=== PATIENT | male | born 1965 | race Caucasian/White ===

== ENCOUNTER 2018-01-06 12:09 | Inpatient (IN) | payer MEDICAID ==
[~2018-01-06] VITALS: Ht 170.2 cm; Wt 114.9 kg
[2018-01-06] VITALS (9 sets, daily range): BP systolic 111–157; BP diastolic 63–99; PULSE 84–111; RESP 16–20; TEMP 97.8–98.3; O2SAT 95–100
[~2018-01-06 12:09] MED LIST: ALBU6.7H INH; BLOOD GLUCOSE T1 TES; EPIP0.3I IM; GLIP-158 PO; GLUCKIT15; GLYCOPYRROLATE 1 MG/5 ML SYRINGE IV PUSH ONE; LIDOCAINE HCL 1% PF 5 ML SYRINGE OTHER ONE; LIPI40TA PO; LISI-519 PO; METF500T PO; NEOSTIGMINE 5 MG/5 ML SYRINGE IV PUSH ONE; ONDANSETRON HCL 4 MG/2 ML VIAL IV ONE; PHENYLEPH/NS 1000 MCG/10 ML SYR IV ONE; PROPOFOL 200 MG/20 ML AMP IV ONE; ROCURONIUM INJ 50 MG/5 ML SYRINGE IV PUSH ONE; SPIRCAP INH; SUCCINYLCHOLINE CHLORIDE 100 MG/5 ML SYRINGE IV PUSH ONE; TAMS0.4C4 PO; WELLTAB39 PO; ZANT150T2 PO
[2018-01-06] MEDS ORDERED: SODIUM CHLOR 0.9% 1000 ML INJ 1,000 ML IV SCH (13:55)
--- NOTE | 2018-01-06 13:55 | PD ---
HPI Chief Complaint: Abdominal Pain Time Seen by Provider: 13:49 Travel History International Travel<30 days: No Contact w/Intl Traveler<30days: No Traveled to known affect area: No History of Present Illness HPI 52-year-old male presents the emergency department with vague complaints of abdominal pain, nausea, and constipation intermittent with diarrhea. Patient has history of stomach issues in the past currently treated with ranitidine 150 mg twice daily. Patient also has a history of prostate trouble, on tamsulosin. Patient states his pain was worse last evening and centered on the lower aspect of the umbilicus region. Patient states history of ventral hernia previously reduced in the past. Patient has had no surgeries on his abdomen. Patient denies vomiting despite the nausea. No recent fever, chills, or flank pain. Patient does state his urine has been "hot off and on". Patient is allergic to ascorbic acid, aspirin, B venom PFSH Past Medical History Cardiac Catheterization: No Cardiovascular Problems: Yes (HTN) High Cholesterol: Yes Chest Pain: Yes COPD: Yes Coronary Artery Disease: Yes Diabetes: Yes Patient Takes Glucophage: Yes Diminished Hearing: No Hypertension: Yes Tetanus Vaccination: < 5 Years Past Surgical History Eye Surgery: Yes Social History Alcohol Use: No Tobacco Use: No Substance Use: No Allergies-Medications (Allergen,Severity, Reaction): Coded Allergies: bee venom protein (honey bee) (Verified Allergy, Severe, 01/06/18) anaphylaxis ascorbic acid (Verified Allergy, Intermediate, rash, 01/06/18) aspirin (Verified Allergy, Mild, 01/06/18) Reported Meds & Prescriptions Reported Meds & Active Scripts Active Zantac (Ranitidine HCl) 150 Mg Tab 150 Mg PO DAILY Wellbutrin Xl 24 HR (Bupropion HCl) 300 Mg Tab 300 Mg PO DAILY Spiriva Handihaler (Tiotropium Inh) 18 Mcg Cap 18 Mcg INH DAILY 1 capsule = 18 mcg Lipitor (Atorvastatin Calcium) 40 Mg Tab 40 Mg PO HS Glipizide XL (Glipizide) 2.5 Mg Lucina 2.5 Mg PO DAILY Take with breakfast or first main meal of the day Tamsulosin (Tamsulosin HCl) 0.4 Mg Cap 0.4 Mg PO HS Lisinopril 5 Mg Tab 5 Mg PO DAILY Metformin (Metformin HCl) 500 Mg Tab 1,000 Mg PO BIDPC With meals Proventil Hfa 6.7 GM Inh (Albuterol Sulfate) 90 Mcg/Act Aer 2 Puff INH Q4-6H PRN Blood Glucose Test Strips 1 Haydee Haydee 1 Ea .ROUTE DIRECTED Glucocom Blood Glucose Mo W/Device (Device) 1 Kit Kit 1 Kit .ROUTE DAILY Epipen 2-Florentin Inj (Epinephrine) 0.3 Mg/0.3 Ml Pfpen 0.3 Mg IM ONCE PRN Review of Systems Except as stated in HPI: all other systems reviewed are Neg General / Constitutional: No: Fever, Chills Eyes: No: Visual changes HENT: No: Headaches Cardiovascular: No: Chest Pain or Discomfort Respiratory: No: Shortness of Breath Gastrointestinal: Positive: Nausea, Diarrhea (Intermittent with constipation.) , Abdominal Pain (See history of present illness), Constipation, Changes in Bowel Habits, Loss of Appetite, No: Vomiting, Hematemesis, Hematochezia, Indigestion, Dysphagia Genitourinary: Positive: Frequency, Dysuria (See history of present illness per ), No: Urgency, Flank Pain, Discharge Musculoskeletal: No: Pain Skin: No Rash Neurologic: No: Weakness Psychiatric: No: Depression Endocrine: No: Polydipsia Hematologic/Lymphatic: No: Easy Bruising Physical Exam Narrative GENERAL: Patient appears comfortable and relaxed in no obvious distress. He is mildly anxious. SKIN: Warm and dry. Normal color. Normal turgor. No rash. HEAD: Atraumatic. Normocephalic. EYES: Pupils equal and round. No scleral icterus. No injection or drainage. ENT: No nasal bleeding or discharge. Mucous membranes pink and moist. Pharynx is clear. Airways patent. NECK: Trachea midline. No JVD. CARDIOVASCULAR: Regular rate and rhythm. RESPIRATORY: No accessory muscle use. Clear to auscultation. Breath sounds equal bilaterally. GASTROINTESTINAL: Abdomen soft, patient has nonspecific mild to moderate tenderness just below the umbilicus, nondistended. No CVA tenderness. No appreciable hernias are noted on exam. Hepatic and splenic margins not palpable. MUSCULOSKELETAL: Extremities without clubbing, cyanosis, or edema. No obvious deformities. NEUROLOGICAL: Awake and alert. No obvious cranial nerve deficits. Motor grossly within normal limits. Five out of 5 muscle strength in the arms and legs. Normal speech. PSYCHIATRIC: Appropriate mood and affect; insight and judgment normal. Data Data Last Documented VS Vital Signs Date Time Temp Pulse Resp B/P (MAP) Pulse Ox O2 Delivery O2 Flow Rate FiO2 01/06/18 15:26 97 20 111/90 (97) 99 Room Air 01/06/18 12:11 98.3 Orders Orders Complete Blood Count With Diff (01/06/18 13:55) Comprehensive Metabolic Panel (01/06/18 13:55) Lipase (01/06/18 13:55) Prothrombin Time / Inr (Pt) (01/06/18 13:55) Act Partial Throm Time (Ptt) (01/06/18 13:55) Urinalysis - C+S If Indicated (01/06/18 13:55) Ct Abd/Pel W Iv Contrast(Rout) (01/06/18 13:55) Iv Access Insert/Monitor (01/06/18 13:55) Ecg Monitoring (01/06/18 13:55) Oximetry (01/06/18 13:55) NPO (01/06/18 13:55) Morphine Inj (Morphine Inj) (01/06/18 14:00) Ondansetron Inj (Zofran Inj) (01/06/18 14:00) Sodium Chlor 0.9% 1000 Ml Inj (Ns 1000 M (01/06/18 13:55) Sodium Chloride 0.9% Flush (Ns Flush) (01/06/18 14:00) Famotidine Inj (Pepcid Inj) (01/06/18 14:00) Dicyclomine Inj (Bentyl Inj) (01/06/18 14:00) Lactic Acid Sepsis Protocol (01/06/18 15:12) Blood Culture (01/06/18 15:12) Iohexol 350 Inj (Omnipaque 350 Inj) (01/06/18 16:47) Piperacil-Tazo 4.5 Gm Premix (Zosyn 4.5 (01/06/18 17:09) Labs Laboratory Tests Test 01/06/18 14:15 01/06/18 15:25 01/06/18 15:45 White Blood Count 10.4 TH/MM3 Red Blood Count 5.47 MIL/MM3 Hemoglobin 16.5 GM/DL Hematocrit 47.7 % Mean Corpuscular Volume 87.2 FL Mean Corpuscular Hemoglobin 30.3 PG Mean Corpuscular Hemoglobin Concent 34.7 % Red Cell Distribution Width 14.8 % Platelet Count 244 TH/MM3 Mean Platelet Volume 9.2 FL Neutrophils (%) (Auto) 57.7 % Lymphocytes (%) (Auto) 33.7 % Monocytes (%) (Auto) 5.6 % Eosinophils (%) (Auto) 1.8 % Basophils (%) (Auto) 1.2 % Neutrophils # (Auto) 6.0 TH/MM3 Lymphocytes # (Auto) 3.5 TH/MM3 Monocytes # (Auto) 0.6 TH/MM3 Eosinophils # (Auto) 0.2 TH/MM3 Basophils # (Auto) 0.1 TH/MM3 CBC Comment DIFF FINAL Differential Comment Prothrombin Time 10.4 SEC Prothromb Time International Ratio 1.0 RATIO Activated Partial Thromboplast Time 25.5 SEC Blood Urea Nitrogen 11 MG/DL Creatinine 1.01 MG/DL Random Glucose 390 MG/DL Total Protein 8.3 GM/DL Albumin 4.2 GM/DL Calcium Level 9.8 MG/DL Alkaline Phosphatase 110 U/L Aspartate Amino Transf (AST/SGOT) 38 U/L Alanine Aminotransferase (ALT/SGPT) 62 U/L Total Bilirubin 0.7 MG/DL Sodium Level 133 MEQ/L Potassium Level 4.2 MEQ/L Chloride Level 98 MEQ/L Carbon Dioxide Level 26.5 MEQ/L Anion Gap 9 MEQ/L Estimat Glomerular Filtration Rate 78 ML/MIN Lipase 143 U/L Lactic Acid Level 2.7 mmol/L Urine Color LIGHT-YELLOW Urine Turbidity CLEAR Urine pH 5.5 Urine Specific [place] 1.031 Urine Protein TRACE mg/dL Urine Glucose (UA) 1000 mg/dL Urine Ketones NEG mg/dL Urine Occult Blood NEG Urine Nitrite NEG Urine Bilirubin NEG Urine Urobilinogen LESS THAN 2.0 MG/DL Urine Leukocyte Esterase NEG Urine WBC 1 /hpf Microscopic Urinalysis Comment CULT NOT INDICATED MDM Medical Decision Making Medical Screen Exam Complete: Yes Emergency Medical Condition: Yes Medical Record Reviewed: Yes Differential Diagnosis Urinary tract infection. Urinary retention. Gastritis. Diverticulitis. Gastroenteritis. Constipation. Abdominal hernia. Narrative Course Patient appears medically stable at time of exam. Labs ordered including CBC, CMP, lipase, urinalysis. IV access is obtained the patient is given 4 mg Zofran IV, 2 mg morphine IV, and 20 mg Pepcid IV. Patient is given 20 mg Bentyl IM. Patient is given 1000 mL's normal saline bolus. CT of the abdomen and pelvis is ordered with IV contrast. CBC is unremarkable. Coagulation studies are unremarkable. Chemistries remarkable for sodium 133, GFR 78, random glucose is 390, lactic acid 2.7, AST is 38, and total protein is 8.3. CT scan showed: The distal appendix is distended to 11 mm and there is very minimal periappendiceal fat stranding. Findings are most characteristic of a very early or very mild appendicitis. No abscess obstruction free fluid or free air. Patient started on Zosyn 4.5 g IV. Patient was given 5 units insulin IV as well. Patient discussed with Dr. Richardson who recommends call to the surgeon. Call was placed to Dr. Vincent and patient was discussed. Dr. Vincent request the patient to remain n.p.o. will be admitted to the hospitalist service with consult to him Calls placed to the hospitalist for admission. Sepsis Criteria Severe Sepsis (+one): Lactate >2 Diagnosis Primary Impression: Acute appendicitis with peritonitis Admitting Information Admitting Physician Requests: Observation Condition: Stable Ketan Lopez Jan 06, 2018 13:55
[2018-01-06] MEDS ORDERED: DICYCLOMINE HCL 20 MG/2 ML VIAL IM ONE (14:00)
[2018-01-06] MEDS ORDERED: FAMOTIDINE 20 MG/2 ML VIAL IV PUSH ONE (14:00)
[2018-01-06] MEDS ORDERED: ONDANSETRON HCL 4 MG/2 ML VIAL IVP ONE (14:00)
[2018-01-06] MEDS ORDERED: MORPHINE SULFATE 4 MG/ML INJ IV PUSH ONE (14:00)
[2018-01-06] MEDS ORDERED: SODIUM CHLORIDE 0.9% FLUSH 10 ML FLUSH IV FLUSH PRN (14:00)
[2018-01-06 14:24] LABS: BASOPHIL # 0.1 TH/MM3 (0-0.2); BASOPHIL % 1.2 % (0.0-2.0); EOSINOPHIL # 0.2 TH/MM3 (0-0.4); EOSINOPHIL % 1.8 % (0.0-4.0); HEMATOCRIT 47.7 % (39.0-51.0); HEMOGLOBIN 16.5 GM/DL (13.0-17.0); LYMPH % 33.7 % (9.0-44.0); LYMPHOCYTE # 3.5 TH/MM3 (1.0-4.8); MEAN CELL VOLUME 87.2 FL (80.0-100.0); MEAN CORPUSCULAR HEMOGLOBIN 30.3 PG (27.0-34.0); MEAN CORPUSCULAR HGB CONC 34.7 % (32.0-36.0); MEAN PLATELET VOLUME 9.2 FL (7.0-11.0); MONO % 5.6 % (0.0-8.0); MONOCYTE # 0.6 TH/MM3 (0-0.9); NEUT % 57.7 % (16.0-70.0); PLATELET COUNT 244 TH/MM3 (150-450); RED BLOOD COUNT 5.47 MIL/MM3 (4.50-5.90); RED CELL DISTRIBUTION WIDTH 14.8 % (11.6-17.2); WHITE BLOOD COUNT 10.4 TH/MM3 (4.0-11.0)
[2018-01-06 14:37] LABS: PROTHROMBIN TIME - PATIENT 10.4 SEC (9.8-11.6)
[2018-01-06 14:41] LABS: ALKALINE PHOSPHATASE 110 U/L (45-117); TOTAL BILIRUBIN ADULT 0.7 MG/DL (0.2-1.0); TOTAL PROTEIN 8.3 GM/DL (6.4-8.2)
[2018-01-06 15:28] LABS: ALBUMIN 4.2 GM/DL (3.4-5.0); ALT (GPT) 62 U/L (12-78); AST (GOT) 38 U/L (15-37); BICARBONATE 26.5 MEQ/L (21.0-32.0); BLOOD UREA NITROGEN 11 MG/DL (7-18); CALCIUM 9.8 MG/DL (8.5-10.1); CHLORIDE 98 MEQ/L (98-107); CREATININE 1.01 MG/DL (0.60-1.30); GLOMERULAR FILTRATION RATE 78 ML/MIN (>89); GLUCOSE,RANDOM 390 MG/DL (74-106); SODIUM (NA) 133 MEQ/L (136-145)
[2018-01-06 16:06] LABS: LACTIC ACID SEPSIS PROTOCOL 2.7 mmol/L (0.4-2.0)
[2018-01-06 16:13] LABS: BILIRUBIN, URINE NEG (NEG); BLOOD, URINE NEG (NEG); GLUCOSE,URINE 1000 mg/dL (NEG); KETONE, URINE NEG (NEG); NITRITE,URINE NEG (NEG); PH, URINE 5.5 (5.0-8.5); URINE COLOR LIGHT-YELLOW (YELLW/STRAW); URINE LEUKOCYTE ESTERASE NEG (NEG)
[2018-01-06] MEDS ORDERED: METFORMIN HOLD POST IV CONTRAST SCH (16:40)
[2018-01-06] MEDS ORDERED: IOHEXOL 350 MG/ML 10 ML VIAL (for RAD DIAG) IVCONTRAST ONE (16:47)
--- NOTE | 2018-01-06 17:07 | RADRPT ---
EXAM DATE/TIME: 01/06/2018 16:38 [place] COMPARISON: No previous studies available for comparison. INDICATIONS : [place] pain, nausea. IV CONTRAST: 96 cc Omnipaque 350 (iohexol) IV ORAL CONTRAST: No oral contrast ingested. RADIATION DOSE: 15.70 CTDIvol (mGy) MEDICAL HISTORY : Cardiovascular disease. Hypertension. Gastroesophageal reflux disease.Diabetes SURGICAL HISTORY : None. ENCOUNTER: Initial ACUITY: 3 days PAIN SCALE: 4/10 LOCATION: [facility] TECHNIQUE: Volumetric scanning of the abdomen and pelvis was performed. Using automated exposure control and ad justment of the mA and/or kV according to patient size, radiation dose was kept as low as reasonably achievable to obtain optimal diagnostic quality images. DICOM format image data is available electro nically for review and comparison. FINDINGS: Lung bases are clear. Fatty liver. Spleen, adrenals, kidneys and pancreas unremarkable. The proximal appendix is normal caliber. However, the distal appendix is distended to about 11 mm and there is very minimal periappendiceal inflammatory changes. Findings are most characteristic of a ve ry early distal appendicitis. There is no abscess, obstruction, free fluid or free air. No pelvic masses. No acute bony abnormalities. CONCLUSION: The distal appendix is distended to 11 mm and there is very minimal periappendiceal fat stranding. Fi ndings are most characteristic of a very early or very mild appendicitis. No abscess obstruction free fluid or free air. Rancho Hairston MD on January 06, 2018 at 17:00 Board Certified Radiologist. This report was verified electronically.
[2018-01-06] MEDS ORDERED: PIPERACIL-TAZO 4.5 GM PREMIX 100 ML IV STA (17:09)
--- NOTE | 2018-01-06 18:05 | HHI.HP ---
HPI Service [facility] Primary Care Physician CODY Diaz Admission Diagnosis Acute Appendicitis Diagnoses: Travel History International Travel<30 Days: No Contact w/Intl Traveler <30 Da: No Traveled to Known Affected Are: No History of Present Illness 52 YOWM presented to the ER for lower abdominal pain. He states the pain has been intermittent for the past 2-3 months but yesterday evening it intensified. He states he had dinner and was watching TV when he had acute onset lower abdominal pain. He endorses associated nausea and belching but denies vomiting, diarrhea, fever, or chills. He states the pain was sharp and pulsating and he rates it as a "20." Pain radiated to the epigastric region and back. He didn't take anything for the pain and was able to get to sleep but only on his side. When he woke this morning the pain was significantly better but still present so he decided to come in for evaluation. His pain so far today has been coming in waves. Review of Systems Except as stated in HPI: all other systems reviewed are Neg Past Family Social History Past Medical History DM HTN HLD COPD Chronic pain Tobacco abuse GERD Past Surgical History Partial right index finger amputation Eye surgery as a child Reported Medications Zantac (Ranitidine HCl) 150 Mg Tab 150 Mg PO DAILY Wellbutrin Xl 24 HR (Bupropion HCl) 300 Mg Tab 300 Mg PO DAILY Spiriva Handihaler (Tiotropium Inh) 18 Mcg Cap 18 Mcg INH DAILY Lipitor (Atorvastatin Calcium) 40 Mg Tab 40 Mg PO HS Glipizide XL (Glipizide) 2.5 Mg Lucina 2.5 Mg PO DAILY Tamsulosin (Tamsulosin HCl) 0.4 Mg Cap 0.4 Mg PO HS Lisinopril 5 Mg Tab 5 Mg PO DAILY Metformin (Metformin HCl) 500 Mg Tab 1,000 Mg PO BIDPC Proventil Hfa 6.7 GM Inh (Albuterol Sulfate) 90 Mcg/Act Aer 2 Puff INH Q4-6H PRN Blood Glucose Test Strips 1 Haydee Haydee 1 Ea .ROUTE DIRECTED Glucocom Blood Glucose Mo W/Device (Device) 1 Kit Kit 1 Kit .ROUTE DAILY Epipen 2-Florentin Inj (Epinephrine) 0.3 Mg/0.3 Ml Pfpen 0.3 Mg IM ONCE PRN Allergies: Coded Allergies: bee venom protein (honey bee) (Verified Allergy, Severe, 01/06/18) anaphylaxis ascorbic acid (Verified Allergy, Intermediate, rash, 01/06/18) aspirin (Verified Allergy, Mild, 01/06/18) Active Ordered Medications Acetaminophen (Tylenol) 650 mg Q4H PRN PO; Start 01/06/18 at 18:30; Status UNV Albuterol/ Ipratropium (Duoneb Neb) 1 ampule Q6HR NEB PRN NEB; Start 01/06/18 at 18:45; Status UNV Atorvastatin Calcium (Lipitor) 40 mg HS PO; Start 01/06/18 at 21:00; Status UNV Bupropion HCl (Wellbutrin Xl 24 Hr) 300 mg DAILY PO; Start 01/07/18 at 09:00; Status UNV Dextrose (D50w (Vial) Inj) 50 ml UNSCH PRN IV PUSH; Start 01/06/18 at 18:30; Status UNV Dicyclomine HCl (Bentyl Inj) 20 mg ONCE ONCE IM Last administered on 01/06/18at 14:18; Admin Dose 20 MG; Start 01/06/18 at 14:00; Stop 01/06/18 at 14:01; Status DC Famotidine (Pepcid Inj) 20 mg ONCE ONCE IV PUSH Last administered on 01/06/18at 14:00; Admin Dose 20 MG; Start 01/06/18 at 14:00; Stop 01/06/18 at 14:01; Status DC Glucagon (Glucagon Inj) 1 mg UNSCH PRN OTHER; Start 01/06/18 at 18:30; Status UNV Insulin Aspart (NovoLOG SUPPLEMENTAL SCALE) 1 ACHS SLIDING SCALE SQ; Start 09/15 at 21:00; Status UNV Iohexol (Omnipaque 350 Inj) 96 ml STK-MED ONCE IVCONTRAST Last administered on at 16:47; Admin Dose 96 ML; Start 01/06/18 at 16:47; Stop 01/06/18 at 16: 48; Status DC Lisinopril (Prinivil) 5 mg DAILY PO; Start 01/07/18 at 09:00; Status UNV Morphine Sulfate (Morphine Inj) 2 mg ONCE ONCE IV PUSH Last administered on 09/15at 14:19; Admin Dose 2 MG; Start 01/06/18 at 14:00; Stop 01/06/18 at 14:01 ; Status DC Morphine Sulfate (Morphine Inj) 2 mg Q6H PRN IV PUSH; Start 01/06/18 at 18:30; Status UNV Non-Formulary Medication 150 mg DAILY PO; Start 01/07/18 at 09:00; Status UNV Ondansetron HCl (Zofran Inj) 4 mg ONCE ONCE IVP Last administered on 01/06/18at 14:20; Admin Dose 4 MG; Start 01/06/18 at 14:00; Stop 01/06/18 at 14:01; Status DC Ondansetron HCl (Zofran Inj) 4 mg Q6H PRN IVP; Start 01/06/18 at 18:30; Status UNV Piperacillin Sod/ Tazobactam Sod 100 ml @ 200 mls/hr ONCE STAT IV Last administered on 01/06/18at 17:17; Admin Dose 200 MLS/HR; Start 01/06/18 at 17:09 ; Stop 01/06/18 at 17:38; Status DC Piperacillin Sod/ Tazobactam Sod 100 ml @ 200 mls/hr Q6H IV; Start 01/06/18 at 23:20; Status UNV Sodium Chloride 1,000 ml @ 125 mls/hr Q8H IV; Start 01/06/18 at 18:27; Status UNV Sodium Chloride 1,000 ml @ 1,000 mls/hr Q1H IV Last administered on 01/06/18at 14:18; Admin Dose 1,000 MLS/HR; Start 01/06/18 at 13:55; Stop 01/06/18 at 14:54 ; Status DC Sodium Chloride (NS Flush) 2 ml BID IV FLUSH; Start 01/06/18 at 21:00; Status UNV Sodium Chloride (NS Flush) 2 ml UNSCH PRN IV FLUSH; Start 01/06/18 at 14:00 Sodium Chloride (NS Flush) 2 ml UNSCH PRN IV FLUSH; Start 01/06/18 at 18:30; Status UNV Tamsulosin HCl (Flomax) 0.4 mg HS PO; Start 01/06/18 at 21:00; Status UNV Tiotropium [place] (Spiriva Inh) 18 mcg DAILY INH; Start 01/07/18 at 09:00; Status UNV Family History Mother: , breast cancer Father: , CAD, stroke, DM Sister from breast cancer Sister from lung cancer Social History Lives alone EtOH: denies Tobacco: quit March 2016, prior smoked since he was 7 years old up to 2PPD Illicit drugs: never IVDU but history or marijuana and "other drugs" including meth and crack Physical Exam Vital Signs Vital Signs Date Time Temp Pulse Resp B/P (MAP) Pulse Ox O2 Delivery O2 Flow Rate FiO2 01/06/18 17:18 99 18 140/73 (95) 97 Room Air 01/06/18 15:26 97 20 111/90 (97) 99 Room Air 01/06/18 15:26 20 01/06/18 14:24 97 01/06/18 13:44 111 20 157/99 (118) 96 01/06/18 12:11 98.3 87 16 156/84 (108) 100 Physical Exam GENERAL: Well-nourished, well-developed male sitting up comfortably in bed in no apparent distress. SKIN: No rashes, ecchymoses or lesions. Cool and dry. Few tattoos. HEENT: Atraumatic. Normocephalic. No temporal or scalp tenderness. Pupils equal round and reactive. Extraocular motions intact. No scleral icterus. No injection or drainage. Nose without bleeding, purulent drainage or septal hematoma. Throat without erythema, tonsillar hypertrophy or exudate. Uvula midline. Airway patent. NECK: Trachea midline. No JVD or lymphadenopathy. Supple, nontender, no meningeal signs. CARDIOVASCULAR: Regular rate and rhythm without murmurs, gallops, or rubs. RESPIRATORY: Clear to auscultation. Breath sounds equal bilaterally. No wheezes , rales, or rhonchi. GASTROINTESTINAL: Bowel sounds present. Abdomen soft, mild periumbilical and RLQ TTP. No guarding or rebound. MUSCULOSKELETAL: Extremities without clubbing, cyanosis, or edema. No joint tenderness, effusion, or edema noted. No calf tenderness. Negative Homans sign bilaterally. NEUROLOGICAL: Awake and alert. Motor and sensory grossly within normal limits. Normal speech. Laboratory Laboratory Tests Test 01/06/18 14:15 01/06/18 15:25 01/06/18 15:45 White Blood Count 10.4 Red Blood Count 5.47 Hemoglobin 16.5 Hematocrit 47.7 Mean Corpuscular Volume 87.2 Mean Corpuscular Hemoglobin 30.3 Mean Corpuscular Hemoglobin Concent 34.7 Red Cell Distribution Width 14.8 Platelet Count 244 Mean Platelet Volume 9.2 Neutrophils (%) (Auto) 57.7 Lymphocytes (%) (Auto) 33.7 Monocytes (%) (Auto) 5.6 Eosinophils (%) (Auto) 1.8 Basophils (%) (Auto) 1.2 Neutrophils # (Auto) 6.0 Lymphocytes # (Auto) 3.5 Monocytes # (Auto) 0.6 Eosinophils # (Auto) 0.2 Basophils # (Auto) 0.1 CBC Comment DIFF FINAL Differential Comment Prothrombin Time 10.4 Prothromb Time International Ratio 1.0 Activated Partial Thromboplast Time 25.5 Blood Urea Nitrogen 11 Creatinine 1.01 Random Glucose 390 Total Protein 8.3 Albumin 4.2 Calcium Level 9.8 Alkaline Phosphatase 110 Aspartate Amino Transf (AST/SGOT) 38 Alanine Aminotransferase (ALT/SGPT) 62 Total Bilirubin 0.7 Sodium Level 133 Potassium Level 4.2 Chloride Level 98 Carbon Dioxide Level 26.5 Anion Gap 9 Estimat Glomerular Filtration Rate 78 Lipase 143 Lactic Acid Level 2.7 Urine Color LIGHT-YELLOW Urine Turbidity CLEAR Urine pH 5.5 Urine Specific [place] 1.031 Urine Protein TRACE Urine Glucose (UA) 1000 Urine Ketones NEG Urine Occult Blood NEG Urine Nitrite NEG Urine Bilirubin NEG Urine Urobilinogen LESS THAN 2.0 Urine Leukocyte Esterase NEG Urine WBC 1 Microscopic Urinalysis Comment CULT NOT INDICATED Date/Time Source Procedure Growth Status 01/06/18 15:25 Blood Peripheral Aerobic Blood Culture Pending Received 01/06/18 15:25 Blood Peripheral Anaerobic Blood Culture Pending Received Result Diagram: 01/06/18 1415 01/06/18 1415 Imaging Abdomen/Pelvis CT 01/06/18 1355 Signed Impressions: Service Date/Time: Saturday, January 06, 2018 16:38 - CONCLUSION: The distal appendix is distended to 11 mm and there is very minimal periappendiceal fat stranding. Findings are most characteristic of a very early or very mild appendicitis. No abscess obstruction free fluid or free air. Rancho Hairston MD [place] VTE Risk Assessment Caprini VTE Risk Assessment: Mod/High Risk (score >= 2) Caprini Risk Assessment Model Point Value = 1 Point Value = 2 Point Value = 3 Point Value = 5 Age 41-60 Minor surgery BMI > 25 kg/m2 Swollen legs Varicose veins or History of unexplained or recurrent spontaneous Oral contraceptives or hormone replacement Sepsis (< 1 month) Serious lung disease, including pneumonia (< 1 month) Abnormal pulmonary function Acute myocardial infarction Congestive heart failure (< 1 month) History of inflammatory bowel disease Medical patient at bed rest Age 61-74 Arthroscopic surgery Major open surgery (> 45 min) Laparoscopic surgery (> 45 min) Malignancy Confined to bed (> 72 hours) Immobilizing plaster cast Central venous access Age >= 75 History of VTE Family history of VTE Factor V Leiden Prothrombin [id number] Lupus anticoagulant Anticardiolipin antibodies Elevated serum homocysteine Heparin-induced thrombocytopenia Other congenital or acquired thrombophilia Stroke (< 1 month) Elective arthroplasty Hip, pelvis, or leg fracture Acute spinal cord injury (< 1 month) Prophylaxis Regimen Total Risk Factor Score Risk Level Prophylaxis Regimen 0-1 Low Early ambulation 2 Moderate Order ONE of the following: *Sequential Compression Device (SCD) *Heparin 5000 units SQ BID 3-4 Higher Order ONE of the following medications: *Heparin 5000 units SQ TID *Enoxaparin/Lovenox 40 mg SQ daily (WT < 150 kg, CrCl > 30 mL/min) *Enoxaparin/Lovenox 30 mg SQ daily (WT < 150 kg, CrCl > 10-29 mL/min) *Enoxaparin/Lovenox 30 mg SQ BID (WT < 150 kg, CrCl > 30 mL/min) AND/OR *Sequential Compression Device (SCD) 5 or more Highest Order ONE of the following medications: *Heparin 5000 units SQ TID (Preferred with Epidurals) *Enoxaparin/Lovenox 40 mg SQ daily (WT < 150 kg, CrCl > 30 mL/min) *Enoxaparin/Lovenox 30 mg SQ daily (WT < 150 kg, CrCl > 10-29 mL/min) *Enoxaparin/Lovenox 30 mg SQ BID (WT < 150 kg, CrCl > 30 mL/min) AND *Sequential Compression Device (SCD) Assessment and Plan Problem List: (1) Appendicitis, acute ICD Code: K35.80 - Unspecified acute appendicitis Status: Acute (2) Diabetes mellitus ICD Code: E11.9 - Type 2 diabetes mellitus without complications Status: Chronic (3) Hypertension ICD Code: I10 - Essential (primary) hypertension Status: Chronic (4) COPD (chronic obstructive pulmonary disease) ICD Code: J44.9 - Chronic obstructive pulmonary disease, unspecified Status: Chronic (5) BPH (benign prostatic hyperplasia) ICD Code: N40.0 - Benign prostatic hyperplasia without lower urinary tract symptoms Status: Chronic (6) Dyslipidemia ICD Code: E78.5 - Hyperlipidemia, unspecified Status: Chronic (7) GERD (gastroesophageal reflux disease) ICD Code: K21.9 - Gastroesophageal reflux disease Status: Chronic Assessment and Plan 52 YOWM with DM, COPD, HTN, HLD, and BPH admitted for acute appendicitis. 1. Acute appendicitis - CT scan showing evidence of early appendicitis - distal appendix distended with fat stranding - General surgery consulted - Zosyn 4.5 mg IV Q6H - NPO - NS at 125 ml/hr - Antiemetics - Pain control 2. DM - Hyperglycemic on admission - Hold home meds - Place on medium SSI per protocol - Check A1c 3. HTN - Continue home Lisinopril - Clonidine PRN 4. COPD - Stable - Continue home inhalers - DuoNeb PRN 5. BPH - Continue home Flomax 6. DVT prophylaxis - No chemical anticoagulation in anticipation of surgery - SCDs Code Status FULL Discussed Condition With Patient Physician Certification 2 Midnight Certification Type: Admission for Inpatient Services Order for Inpatient Services The services are ordered in accordance with Medicare regulations or non- Medicare payer requirements, as applicable. In the case of services not specified as inpatient-only, they are appropriately provided as inpatient services in accordance with the 2-midnight benchmark. Estimated LOS (days): 2 2 days is the estimated time the patient will need to remain in the hospital, assuming treatment plan goals are met and no additional complications. Post-Hospital Plan: Home Kierra Benoit MD Jan 06, 2018 18:05
[2018-01-06] MEDS ORDERED: MORPHINE SULFATE 4 MG/ML INJ IV PUSH PRN (18:30)
[2018-01-06] MEDS ORDERED: DEXTROSE 50% IN WATER 50 ML VIAL(D50) IV PUSH PRN (18:30)
[2018-01-06] MEDS ORDERED: ONDANSETRON HCL 4 MG/2 ML VIAL IVP PRN (18:30)
[2018-01-06] MEDS ORDERED: GLUCAGON 1 MG/ML VIAL OTHER PRN (18:30)
[2018-01-06] MEDS ORDERED: RESP: ALBUTEROL 2.5 MG/IPRATROPIUM 0.5 MG NEB (PRN) NEB (18:45)
[2018-01-06] MEDS ORDERED: cloNIDine HCL 0.1 MG TAB PO PRN (18:45)
[2018-01-06] MEDS: SODIUM CHLOR 0.9% 1000 ML INJ 1,000 ML IV SCH ×2 (18:55→22:59)
--- NOTE | 2018-01-06 20:04 | HHI.PR ---
Immediate Post Op Note Procedure Date: Jan 06, 2018 Pre Op Diagnosis: acute appendicitis Post Op Diagnosis: same Surgeon: Kishore Vincent MD Dough Molder(s): none Procedure: lap appy Findings: inflamed appendix Complications: none Specimen(s) removed: appendix Estimated blood loss: 5cc Anesthesia: General Drains: None Patient to: PACU Patient Condition: Good Kishore Vincent MD Jan 06, 2018 20:04
[2018-01-06] MEDS ORDERED: BUPIVACAINE/EPINEPHRINE 0.5% PF 30 ML VIAL ONE (20:24)
[2018-01-06] MEDS ORDERED: MIDAZOLAM HCL 2 MG/2 ML VIAL ONE (21:15)
[2018-01-06] MEDS ORDERED: DO NOT ADM ANY ANTICOAGULANT DRUGS PRN (22:00)
[2018-01-06] MEDS: SODIUM CHLORIDE 0.9% FLUSH 10 ML FLUSH IV FLUSH SCH (22:59)
[2018-01-06] MEDS: PIPERACIL-TAZO 4.5 GM PREMIX 100 ML IV SCH (23:02)
[2018-01-06] MEDS: TAMSULOSIN HCL 0.4 MG CAP PO SCH (23:04)
[2018-01-06] MEDS: ATORVASTATIN 40 MG TAB PO SCH (23:05)
[2018-01-06] MEDS: INSULIN ASPART SUPPLEMENTAL SCALE SQ SCH (23:29)
[2018-01-07] VITALS (32 sets, daily range): BP systolic 136–163; BP diastolic 69–96; PULSE 92–122; RESP 16–18; TEMP 97.8–100.6; O2SAT 96–98
[2018-01-07] MEDS: PIPERACIL-TAZO 4.5 GM PREMIX 100 ML IV SCH ×4 (04:40→23:15)
[2018-01-07 06:33] LABS: AUTOMATED NEUTROPHIL # 9.3 TH/MM3 (1.8-7.7); BASOPHIL # 0.1 TH/MM3 (0-0.2); BASOPHIL % 0.8 % (0.0-2.0); EOSINOPHIL % 0.4 % (0.0-4.0); HEMATOCRIT 42.9 % (39.0-51.0); HEMOGLOBIN 14.7 GM/DL (13.0-17.0); LYMPH % 18.5 % (9.0-44.0); LYMPHOCYTE # 2.3 TH/MM3 (1.0-4.8); MEAN CORPUSCULAR HEMOGLOBIN 29.5 PG (27.0-34.0); MEAN CORPUSCULAR HGB CONC 34.3 % (32.0-36.0); MEAN PLATELET VOLUME 8.8 FL (7.0-11.0); MONOCYTE # 0.6 TH/MM3 (0-0.9); NEUT % 75.3 % (16.0-70.0); PLATELET COUNT 208 TH/MM3 (150-450); RED BLOOD COUNT 4.99 MIL/MM3 (4.50-5.90); RED CELL DISTRIBUTION WIDTH 14.9 % (11.6-17.2); WHITE BLOOD COUNT 12.3 TH/MM3 (4.0-11.0)
[2018-01-07 06:38] LABS: ALBUMIN 3.4 GM/DL (3.4-5.0); ALKALINE PHOSPHATASE 79 U/L (45-117); ALT (GPT) 53 U/L (12-78); AST (GOT) 27 U/L (15-37); BICARBONATE 29.2 MEQ/L (21.0-32.0); BLOOD UREA NITROGEN 8 MG/DL (7-18); CALCIUM 8.4 MG/DL (8.5-10.1); CHLORIDE 99 MEQ/L (98-107); CREATININE 0.89 MG/DL (0.60-1.30); GLOMERULAR FILTRATION RATE 90 ML/MIN (>89); GLUCOSE,RANDOM 159 MG/DL (74-106); SODIUM (NA) 137 MEQ/L (136-145); TOTAL BILIRUBIN ADULT 1.5 MG/DL (0.2-1.0); TOTAL PROTEIN 6.8 GM/DL (6.4-8.2)
--- NOTE | 2018-01-07 08:26 | HHI.PR ---
Subjective Remarks This is a pleasant 52 y/o Male who came to ER with lower abdominal pain, with diagnosis of appendicitis status post appendectomy, he has DM II, Hypertension, Hyperlipidemia, COPD, Chronic pain syndrome Tobacco dependence, GERD. stable in his bedroom discussed with nurse Miss Cuevas, advanced diet awaiting final by General strategy specialist for discharge. No nausea, vomit or diarrhea. Objective Vital Signs Date Time Temp Pulse Resp B/P (MAP) Pulse Ox O2 Delivery O2 Flow Rate FiO2 01/07/18 06:03 99 01/07/18 05:01 103 01/07/18 04:16 97.8 101 18 136/89 (105) 96 01/07/18 04:02 99 01/07/18 03:09 104 01/07/18 02:05 100 01/07/18 01:00 100 01/07/18 00:05 98.4 95 18 138/89 (105) 96 01/07/18 00:05 94 01/06/18 23:46 91 01/06/18 22:10 97.8 84 16 135/87 (103) 95 01/06/18 22:00 81 16 134/73 (93) 99 Nasal Cannula 3 01/06/18 21:45 85 16 120/66 (84) 99 Nasal Cannula 3 01/06/18 21:30 84 17 122/67 (85) 98 Nasal Cannula 3 01/06/18 21:15 98.4 88 17 122/70 (87) 98 Nasal Cannula 4 01/06/18 20:00 96 01/06/18 19:23 98 20 111/63 (79) 97 01/06/18 17:18 99 18 140/73 (95) 97 Room Air 01/06/18 15:26 97 20 111/90 (97) 99 Room Air 01/06/18 15:26 20 01/06/18 14:24 97 01/06/18 13:44 111 20 157/99 (118) 96 01/06/18 12:11 98.3 87 16 156/84 (108) 100 I/O 01/06/18 01/06/18 01/06/18 01/07/18 01/07/18 01/07/18 06:59 14:59 22:59 06:59 14:59 22:59 Intake Total 2650 ml 240 ml Output Total 5 ml 625 ml Balance 2645 ml -385 ml Intake Oral 240 ml IV Total 2650 ml Output Urine Total 625 ml Estimated Blood Loss 5 ml Result Diagram: 01/07/18 0530 01/07/18 0530 Imaging Last Impressions Abdomen/Pelvis CT 01/06/18 1355 Signed Impressions: Service Date/Time: Saturday, January 06, 2018 16:38 - CONCLUSION: The distal appendix is distended to 11 mm and there is very minimal periappendiceal fat stranding. Findings are most characteristic of a very early or very mild appendicitis. No abscess obstruction free fluid or free air. Rancho Hairston MD Procedures Laparoscopic Appendectomy 01/06/18 Other Results Laboratory Tests Test 01/06/18 14:15 01/06/18 15:45 01/07/18 01:10 01/07/18 05:30 Prothrombin Time 10.4 SEC Prothromb Time International Ratio 1.0 RATIO Activated Partial Thromboplast Time 25.5 SEC Lipase 143 U/L Urine Color LIGHT-YELLOW Urine Turbidity CLEAR Urine pH 5.5 Urine Specific [place] 1.031 Urine Protein TRACE mg/dL Urine Glucose (UA) 1000 mg/dL Urine Ketones NEG mg/dL Urine Occult Blood NEG Urine Nitrite NEG Urine Bilirubin NEG Urine Urobilinogen LESS THAN 2.0 MG/DL Urine Leukocyte Esterase NEG Urine WBC 1 /hpf Microscopic Urinalysis Comment CULT NOT INDICATED Lactic Acid Level 2.2 mmol/L White Blood Count 12.3 TH/MM3 Red Blood Count 4.99 MIL/MM3 Hemoglobin 14.7 GM/DL Hematocrit 42.9 % Mean Corpuscular Volume 86.0 FL Mean Corpuscular Hemoglobin 29.5 PG Mean Corpuscular Hemoglobin Concent 34.3 % Red Cell Distribution Width 14.9 % Platelet Count 208 TH/MM3 Mean Platelet Volume 8.8 FL Neutrophils (%) (Auto) 75.3 % Lymphocytes (%) (Auto) 18.5 % Monocytes (%) (Auto) 5.0 % Eosinophils (%) (Auto) 0.4 % Basophils (%) (Auto) 0.8 % Neutrophils # (Auto) 9.3 TH/MM3 Lymphocytes # (Auto) 2.3 TH/MM3 Monocytes # (Auto) 0.6 TH/MM3 Eosinophils # (Auto) 0.0 TH/MM3 Basophils # (Auto) 0.1 TH/MM3 CBC Comment DIFF FINAL Differential Comment Blood Urea Nitrogen 8 MG/DL Creatinine 0.89 MG/DL Random Glucose 159 MG/DL Total Protein 6.8 GM/DL Albumin 3.4 GM/DL Calcium Level 8.4 MG/DL Alkaline Phosphatase 79 U/L Aspartate Amino Transf (AST/SGOT) 27 U/L Alanine Aminotransferase (ALT/SGPT) 53 U/L Total Bilirubin 1.5 MG/DL Sodium Level 137 MEQ/L Potassium Level 3.5 MEQ/L Chloride Level 99 MEQ/L Carbon Dioxide Level 29.2 MEQ/L Anion Gap 9 MEQ/L Estimat Glomerular Filtration Rate 90 ML/MIN Objective Remarks GENERAL: Well-nourished, well-developed male sitting up comfortably in bed in no apparent distress. SKIN: No rashes, ecchymoses or lesions. Cool and dry. Few tattoos. HEENT: Atraumatic. Normocephalic. No temporal or scalp tenderness. Pupils equal round and reactive. Extraocular motions intact. No scleral icterus. No injection or drainage. Nose without bleeding, purulent drainage or septal hematoma. Throat without erythema, tonsillar hypertrophy or exudate. Uvula midline. Airway patent. NECK: Trachea midline. No JVD or lymphadenopathy. Supple, nontender, no meningeal signs. CARDIOVASCULAR: Regular rate and rhythm without murmurs, gallops, or rubs. RESPIRATORY: Clear to auscultation. Breath sounds equal bilaterally. No wheezes , rales, or rhonchi. GASTROINTESTINAL: Bowel sounds present. Abdomen soft, mild periumbilical and RLQ TTP. No guarding or rebound. MUSCULOSKELETAL: Extremities without clubbing, cyanosis, or edema. No joint tenderness, effusion, or edema noted. No calf tenderness. Negative Homans sign bilaterally. NEUROLOGICAL: Awake and alert. Motor and sensory grossly within normal limits. Normal speech. Medications and IVs Current Medications Medications (Trade) Dose Ordered Sig/Zhen Route Start Time Stop Time Status Last Admin Sodium Chloride 1,000 ml @ 125 mls/hr Q8H IV 01/06/18 18:27 01/06/18 22:59 (NS Flush) 2 ml BID IV FLUSH 01/06/18 21:00 01/06/18 22:59 (NS Flush) 2 ml UNSCH PRN IV FLUSH 01/06/18 18:30 (Morphine Inj) 2 mg Q6H PRN IV PUSH 01/06/18 18:30 01/07/18 00:08 Piperacillin Sod/ Tazobactam Sod 100 ml @ 200 mls/hr Q6H IV 01/06/18 23:00 01/07/18 04:40 (Tylenol) 650 mg Q4H PRN PO 01/06/18 18:30 (Zofran Inj) 4 mg Q6H PRN IVP 01/06/18 18:30 (D50w (Vial) Inj) 50 ml UNSCH PRN IV PUSH 01/06/18 18:30 (Glucagon Inj) 1 mg UNSCH PRN OTHER 01/06/18 18:30 (NovoLOG SUPPLEMENTAL SCALE) 1 ACHS SLIDING SCALE SQ 01/06/18 21:00 01/06/18 23:29 (Lipitor) 40 mg HS PO 01/06/18 21:00 01/06/18 23:05 (Wellbutrin Xl 24 Hr) 300 mg DAILY PO 01/07/18 09:00 (Prinivil) 5 mg DAILY PO 01/07/18 09:00 (Flomax) 0.4 mg HS PO 01/06/18 21:00 01/06/18 23:04 (Spiriva Inh) 18 mcg DAILY INH 01/07/18 09:00 (Pepcid) 20 mg BID PO 01/07/18 09:00 (Duoneb Neb) 1 ampule Q6HR NEB PRN NEB 01/06/18 18:45 (Catapres) 0.1 mg Q6H PRN PO 01/06/18 18:45 Miscellaneous Information ALL NURSING DEPARTME... UNSCH PRN .XX 01/06/18 22:00 01/07/18 21:59 Miscellaneous Information HOLD METFORMIN FOR... Q24H .XX 01/06/18 16:40 01/08/18 16:39 A/P Assessment and Plan (1) Appendicitis, acute ICD Code: K35.80 - Unspecified acute appendicitis Status: Acute (2) Diabetes mellitus ICD Code: E11.9 - Type 2 diabetes mellitus without complications Status: Chronic (3) Hypertension ICD Code: I10 - Essential (primary) hypertension Status: Chronic (4) COPD (chronic obstructive pulmonary disease) ICD Code: J44.9 - Chronic obstructive pulmonary disease, unspecified Status: Chronic (5) BPH (benign prostatic hyperplasia) ICD Code: N40.0 - Benign prostatic hyperplasia without lower urinary tract symptoms Status: Chronic (6) Dyslipidemia ICD Code: E78.5 - Hyperlipidemia, unspecified Status: Chronic (7) GERD (gastroesophageal reflux disease) ICD Code: K21.9 - Gastroesophageal reflux disease Status: Chronic 1. Acute appendicitis - CT scan showing evidence of early appendicitis - distal appendix distended with fat stranding - Status post laparoscopic appendectomy 01/06/18 2. DM II, continue Sliding scale, follow Hemoglobin A1C 3. HTN - Continue home Lisinopril - Clonidine PRN 4. COPD non exacerbated, continue bronchodilator, Mucolytic and incentive spirometry. 5. BPH - Continue home Flomax 6. DVT prophylaxis SCDs Code Status FULL Discussed Condition With Patient Discharge Planning once cleared by General strategy specialist. Shaheen Gutierrez MD Jan 07, 2018 08:26
[2018-01-07] MEDS: TIOTROPIUM BROMIDE 18 MCG INH INH SCH (09:00)
[2018-01-07] MEDS: SODIUM CHLORIDE 0.9% FLUSH 10 ML FLUSH IV FLUSH SCH ×2 (09:00→21:33)
[2018-01-07] MEDS: ACETAMINOPHEN 325 MG TAB PO PRN ×2 (09:02→21:31)
[2018-01-07] MEDS: FAMOTIDINE 20 MG TAB PO SCH ×2 (09:03→21:32)
[2018-01-07] MEDS: LISINOPRIL 5 MG TAB PO SCH (09:03)
[2018-01-07] MEDS: INSULIN ASPART SUPPLEMENTAL SCALE SQ SCH ×4 (09:04→21:44)
--- NOTE | 2018-01-07 10:18 | MB ---
cc: Kishore Vincent MD DATE OF CONSULT: 01/06/2018 CHIEF COMPLAINT: Abdominal pain, acute appendicitis. HISTORY OF PRESENT ILLNESS: The patient is a 52-year-old male who presents with acute onset of abdominal pain. He states the pain happened sudden onset at dinner last night, while watching TV. He states his pain was severe and significant, first periumbilical and then migrates to the right lower quadrant. He notes the pain was 7/10. It is currently a 6/10 after some IV pain medications, worse with movement, better with lying still. He had subjective chills with no noted fever. He states again, he has never had quite pain in this fashion before. He denies any vomiting, does have nausea. He came to the emergency department for further evaluation, including WBC of 10.[address] showing acute appendicitis. PAST MEDICAL HISTORY: Diabetes, hypertension, hyperlipidemia, COPD, reflux. PAST SURGICAL HISTORY: Right index finger amputation, eye surgery. MEDICATIONS: See EMR. ALLERGIES: Bee sting SOCIAL HISTORY: Denies ETOH. Quit smoking 7 years ago. Used to be up to 2 pack a day. History of THC and other recreational drugs. FAMILY HISTORY: Father, coronary artery disease, stroke, diabetes. Mother, breast cancer. REVIEW OF SYSTEMS: GENERAL: Denies fevers, complaining of chills. HEENT: Denies eye pain, ear pain. NECK: Denies swelling or pain. LUNGS: Denies cough or wheeze. HEART: Denies chest pain or palpitation. ABDOMEN: Complains of nausea and abdominal pain. : Denies dysuria or hematuria. ENDOCRINE: Denies polyuria or polydipsia. INTEGUMENTARY: Denies masses or lesions. EXTREMITIES: Denies arthralgia, myalgias. NEUROLOGIC: Denies numbness, tingling. PHYSICAL EXAMINATION: GENERAL: The patient in no acute distress. VITAL SIGNS: Temperature 98.3, pulse 87, respiration 16, blood pressure 156/84, saturation 100%. HEENT: Pupils equal, round, reactive. NECK: Supple. Trachea midline. PULMONARY: Lungs clear to auscultation, bilateral expansion. CARDIOVASCULAR: S1, S2, regular rhythm. ABDOMEN: Soft, positive to palpation umbilical and right lower quadrant. No rebound. EXTREMITIES: Warm, well perfused. NEUROLOGIC: 5/5 motor all extremities. GCS of 15. LABORATORY DIAGNOSTIC DATA: WBC 10.4, hemoglobin 16.5, hematocrit 47.7, platelets 244. Sodium 133, potassium 4.2, chloride 98, BUN is 11, creatinine 1.01. Lactate 2.7. AST 38, ALT 262, lipase 1.3. IMAGING: CT reviewed by myself showing distal appendix dilated, with acute appendicitis. ASSESSMENT: The patient is a 52-year-old male, abdominal pain, CT findings of acute appendicitis. PLAN: Under full workup, patient with above named issues, including acute appendicitis. The patient needs IV antibiotics, nothing by mouth, IV pain control. We will plan for laparoscopic appendectomy. Discussed with the patient in detail, understands and agrees and would like to proceed. MD LISSETTE Basurto/CHU , 08:09 PM , 08:54 PM JARAD
[2018-01-07] MEDS ORDERED: ACETAMINOPHEN/HYDROcodone 325 MG/5 MG TAB PO PRN (10:30)
[2018-01-07] MEDS: buPROPion HCL 150 MG EXTENDED RELEASE TAB PO SCH (12:44)
--- NOTE | 2018-01-07 13:33 | HHI.PR ---
Subjective Subjective Notes Ambulating in room Painful when moving around Objective Vitals/I&O Vital Signs Date Time Temp Pulse Resp B/P (MAP) Pulse Ox O2 Delivery O2 Flow Rate FiO2 01/07/18 11:17 97.9 93 16 163/69 (100) 96 01/06/18 22:00 Nasal Cannula 3 Labs Laboratory Tests Test 01/06/18 14:15 01/06/18 15:25 01/06/18 15:45 01/07/18 01:10 White Blood Count 10.4 Red Blood Count 5.47 Hemoglobin 16.5 Hematocrit 47.7 Mean Corpuscular Volume 87.2 Mean Corpuscular Hemoglobin 30.3 Mean Corpuscular Hemoglobin Concent 34.7 Red Cell Distribution Width 14.8 Platelet Count 244 Mean Platelet Volume 9.2 Neutrophils (%) (Auto) 57.7 Lymphocytes (%) (Auto) 33.7 Monocytes (%) (Auto) 5.6 Eosinophils (%) (Auto) 1.8 Basophils (%) (Auto) 1.2 Neutrophils # (Auto) 6.0 Lymphocytes # (Auto) 3.5 Monocytes # (Auto) 0.6 Eosinophils # (Auto) 0.2 Basophils # (Auto) 0.1 CBC Comment DIFF FINAL Differential Comment Prothrombin Time 10.4 Prothromb Time International Ratio 1.0 Activated Partial Thromboplast Time 25.5 Blood Urea Nitrogen 11 Creatinine 1.01 Random Glucose 390 Total Protein 8.3 Albumin 4.2 Calcium Level 9.8 Alkaline Phosphatase 110 Aspartate Amino Transf (AST/SGOT) 38 Alanine Aminotransferase (ALT/SGPT) 62 Total Bilirubin 0.7 Sodium Level 133 Potassium Level 4.2 Chloride Level 98 Carbon Dioxide Level 26.5 Anion Gap 9 Estimat Glomerular Filtration Rate 78 Lipase 143 Lactic Acid Level 2.7 2.2 Urine Color LIGHT-YELLOW Urine Turbidity CLEAR Urine pH 5.5 Urine Specific [place] 1.031 Urine Protein TRACE Urine Glucose (UA) 1000 Urine Ketones NEG Urine Occult Blood NEG Urine Nitrite NEG Urine Bilirubin NEG Urine Urobilinogen LESS THAN 2.0 Urine Leukocyte Esterase NEG Urine WBC 1 Microscopic Urinalysis Comment CULT NOT INDICATED Test 01/07/18 05:30 White Blood Count 12.3 Red Blood Count 4.99 Hemoglobin 14.7 Hematocrit 42.9 Mean Corpuscular Volume 86.0 Mean Corpuscular Hemoglobin 29.5 Mean Corpuscular Hemoglobin Concent 34.3 Red Cell Distribution Width 14.9 Platelet Count 208 Mean Platelet Volume 8.8 Neutrophils (%) (Auto) 75.3 Lymphocytes (%) (Auto) 18.5 Monocytes (%) (Auto) 5.0 Eosinophils (%) (Auto) 0.4 Basophils (%) (Auto) 0.8 Neutrophils # (Auto) 9.3 Lymphocytes # (Auto) 2.3 Monocytes # (Auto) 0.6 Eosinophils # (Auto) 0.0 Basophils # (Auto) 0.1 CBC Comment DIFF FINAL Differential Comment Blood Urea Nitrogen 8 Creatinine 0.89 Random Glucose 159 Total Protein 6.8 Albumin 3.4 Calcium Level 8.4 Alkaline Phosphatase 79 Aspartate Amino Transf (AST/SGOT) 27 Alanine Aminotransferase (ALT/SGPT) 53 Total Bilirubin 1.5 Sodium Level 137 Potassium Level 3.5 Chloride Level 99 Carbon Dioxide Level 29.2 Anion Gap 9 Estimat Glomerular Filtration Rate 90 Date/Time Source Procedure Growth Status 01/06/18 15:25 Blood Peripheral Aerobic Blood Culture - Preliminary NO GROWTH IN 1 DAY Resulted 01/06/18 15:25 Blood Peripheral Anaerobic Blood Culture - Preliminary NO GROWTH IN 1 DAY Resulted Cardiovascular: Regular Lungs: Clear Abdomen: Other (lap sites c/d/i; abd soft; minimally tender to palpation ) Extremities: No edema A/P Assessment and Plan 52 year old male POD1 lap appy; multiple chronic medical conditions -DC IVF -1800 ADA diet -DC home when pain controlled using oral pain meds and tolerating diet -Follow up with Dr. Vincent January 14 Attending Statement s/p appendectomy doing well ada diet d/c home Esther FlynnP/Fur Coat Sewer CODY Jan 07, 2018 13:33 Kishore Vincent MD Jan 11, 2018 21:17
[2018-01-07] MEDS ORDERED: HYDR-3516 PO (15:35)
[2018-01-07 16:38] LABS: HEMOGLOBIN A1C 12.5 % (4.3-6.0)
--- NOTE | 2018-01-07 20:21 | EKG ---
Date Performed: 01/06/2018 Time Performed: 19:43:01 PTAGE: 52 years EKG: Sinus rhythm RIGHT BUNDLE BRANCH BLOCK LEFT ANTERIOR FASCICULAR BLOCK Compared to previous tracing, the patient h as developed left acis deviation. The patient has also developed fairly marked anterolater ST segment changes that are new. Myocardial ischemia should be excluded clincally ABNORMAL ECG PREVIOUS TRACING : 12/05/2014 04.41 DOCTOR: Sandy Sandy Interpretating Date/Time 01/07/2018 20:19:25
[2018-01-07] MEDS: ATORVASTATIN 40 MG TAB PO SCH (21:32)
[2018-01-07] MEDS: TAMSULOSIN HCL 0.4 MG CAP PO SCH (21:32)
[2018-01-07] MEDS: SODIUM CHLORIDE 0.9% FLUSH 10 ML FLUSH IV FLUSH PRN ×2 (21:33→23:15)
[2018-01-08] VITALS (22 sets, daily range): BP systolic 134–148; BP diastolic 83–97; PULSE 74–98; RESP 16–18; TEMP 97.5–98.5; O2SAT 95–99
[2018-01-08] MEDS: SODIUM CHLORIDE 0.9% FLUSH 10 ML FLUSH IV FLUSH PRN ×3 (00:33→05:40)
[2018-01-08] MEDS: PIPERACIL-TAZO 4.5 GM PREMIX 100 ML IV SCH (04:27)
--- NOTE | 2018-01-08 08:09 | MP ---
cc: Kishore Vincent MD DATE OF OPERATION: PREOPERATIVE DIAGNOSIS: Acute appendicitis. POSTOPERATIVE DIAGNOSIS: Acute appendicitis. PROCEDURE PERFORMED: Laparoscopic appendectomy. SURGEON: Kishore Vincent MD PHOTO TECH: LYNETTE ANESTHESIA: GETA. INTRAVENOUS FLUIDS: See anesthesia sheet. ESTIMATED BLOOD LOSS: 5 mL. DRAINS: None. COMPLICATIONS: None. WOUND CLASSIFICATION: Clean, contaminated. SPECIMENS: Appendix. FINDINGS: Acutely inflamed appendix without evidence of perforation. INDICATIONS: The patient is a 52-year-old male who presents with acute onset of periumbilical right lower quadrant pain. The patient had CT scan findings of acute appendicitis; therefore, the decision was made for laparoscopic appendectomy. DETAILS OF PROCEDURE: The patient was taken to the operating suite, placed in supine position. He was prepped and draped in usual sterile fashion after induction of general endotracheal anesthesia. A brief timeout was done stating correct patient, procedure, surgical site. We were all in agreement with this. Attention was first directed to the umbilicus where local anesthetic injected. Stab merari incision was made. Visiport 5 mm port was used to enter the abdomen safely. The abdomen was insufflated to 15 mm pneumoperitoneum. Two other ports were placed in left lower quadrant and suprapubic port as well. The left lower quadrant was a 12 mm port, and the 5 mm was a suprapubic port. The patient was placed in Trendelenburg, airplaned to the left. The right lower quadrant was identified, showing the appendix. The adhesions were taken down to the right lower quadrant of the appendix. The base of the appendix was identified. A small window was made in the base of the mesoappendix. The Endo DARSHANA stapler was used to transect the base of the appendix. The appendix further mobilized, noted to be somewhat distended and indurated. The mesoappendix was transected using 2 fires of an Endo DARSHANA stapler. The appendix was placed in Endo Catch bag and removed from the abdomen. Suction irrigation was used. Bovie electrocautery used for hemostasis. Pneumoperitoneum was them removed. Ports were removed. The left lower quadrant port was closed to the fascia with a 0 Vicryl . 4-0 Monocryl was used for subcuticular sutures at the other port sites. All lap and instrument counts were correct at the end of the procedure. The patient tolerated the procedure well, no complication. The patient was extubated, taken to the PACU. MD LISSETTE Basurto/MARCELLUS , 09:55 PM , 08:08 AM JARAD
[2018-01-08] MEDS: TIOTROPIUM BROMIDE 18 MCG INH INH SCH (08:11)
[2018-01-08] MEDS: LISINOPRIL 5 MG TAB PO SCH (08:11)
[2018-01-08] MEDS: buPROPion HCL 150 MG EXTENDED RELEASE TAB PO SCH (08:11)
[2018-01-08] MEDS: FAMOTIDINE 20 MG TAB PO SCH (08:11)
[2018-01-08] MEDS: SODIUM CHLORIDE 0.9% FLUSH 10 ML FLUSH IV FLUSH SCH (08:11)
[2018-01-08] MEDS: INSULIN ASPART SUPPLEMENTAL SCALE SQ SCH ×3 (08:19→17:17)
--- NOTE | 2018-01-08 08:20 | HHI.PR ---
Subjective Remarks This is a pleasant 52 y/o Male who came to ER with lower abdominal pain, with diagnosis of appendicitis status post appendectomy, he has DM II, Hypertension, Hyperlipidemia, COPD, Chronic pain syndrome Tobacco dependence, GERD. stable in his bedroom discussed with nurse Miss Cuevas, advanced diet awaiting final by General accounts specialist for discharge. 01/08: Seen in his bedroom, no nausea, vomit or diarrhea, already recommended for discharge by General Surgery. Objective Vital Signs Date Time Temp Pulse Resp B/P (MAP) Pulse Ox O2 Delivery O2 Flow Rate FiO2 01/08/18 07:06 91 01/08/18 06:06 88 01/08/18 05:05 98 01/08/18 04:29 97.9 88 18 145/88 (107) 99 01/08/18 04:07 84 01/08/18 03:04 92 01/08/18 02:00 86 01/08/18 01:01 97 01/08/18 00:26 98.5 93 16 146/83 (104) 95 01/08/18 00:06 96 01/07/18 23:08 102 01/07/18 22:23 122 01/07/18 22:04 111 01/07/18 21:30 98 21 01/07/18 21:04 106 01/07/18 20:33 100.6 101 16 159/93 (115) 98 01/07/18 20:04 99 01/07/18 19:02 106 01/07/18 19:00 104 01/07/18 18:00 106 01/07/18 17:00 96 01/07/18 16:00 102 01/07/18 15:00 102 01/07/18 14:00 102 01/07/18 13:00 94 01/07/18 12:00 98 01/07/18 11:17 97.9 93 16 163/69 (100) 96 01/07/18 11:00 92 01/07/18 10:00 100 01/07/18 09:43 98 01/07/18 09:00 104 01/07/18 08:41 97.9 100 16 145/96 (112) I/O 01/07/18 01/07/18 01/07/18 01/08/18 01/08/18 01/08/18 07:00 15:00 23:00 07:00 15:00 23:00 Intake Total 240 ml 100 ml 1460 ml 455 ml Output Total 625 ml 1975 ml 550 ml Balance -385 ml 100 ml -515 ml -95 ml Intake Oral 240 ml 360 ml 240 ml IV Total 100 ml 1100 ml 215 ml Output Urine Total 625 ml 1975 ml 550 ml Result Diagram: 01/07/18 0530 01/07/18 0530 Imaging Last Impressions Abdomen/Pelvis CT 01/06/18 1355 Signed Impressions: Service Date/Time: Saturday, January 06, 2018 16:38 - CONCLUSION: The distal appendix is distended to 11 mm and there is very minimal periappendiceal fat stranding. Findings are most characteristic of a very early or very mild appendicitis. No abscess obstruction free fluid or free air. Rancho Hairston MD Procedures Laparoscopic Appendectomy 01/06/18 Other Results Laboratory Tests Test 01/06/18 14:15 01/06/18 15:45 01/07/18 01:10 01/07/18 05:30 Prothrombin Time 10.4 SEC Prothromb Time International Ratio 1.0 RATIO Activated Partial Thromboplast Time 25.5 SEC Hemoglobin A1c 12.5 % Lipase 143 U/L Urine Color LIGHT-YELLOW Urine Turbidity CLEAR Urine pH 5.5 Urine Specific R[place]y 1.031 Urine Protein TRACE mg/dL Urine Glucose (UA) 1000 mg/dL Urine Ketones NEG mg/dL Urine Occult Blood NEG Urine Nitrite NEG Urine Bilirubin NEG Urine Urobilinogen LESS THAN 2.0 MG/DL Urine Leukocyte Esterase NEG Urine WBC 1 /hpf Microscopic Urinalysis Comment CULT NOT INDICATED Lactic Acid Level 2.2 mmol/L White Blood Count 12.3 TH/MM3 Red Blood Count 4.99 MIL/MM3 Hemoglobin 14.7 GM/DL Hematocrit 42.9 % Mean Corpuscular Volume 86.0 FL Mean Corpuscular Hemoglobin 29.5 PG Mean Corpuscular Hemoglobin Concent 34.3 % Red Cell Distribution Width 14.9 % Platelet Count 208 TH/MM3 Mean Platelet Volume 8.8 FL Neutrophils (%) (Auto) 75.3 % Lymphocytes (%) (Auto) 18.5 % Monocytes (%) (Auto) 5.0 % Eosinophils (%) (Auto) 0.4 % Basophils (%) (Auto) 0.8 % Neutrophils # (Auto) 9.3 TH/MM3 Lymphocytes # (Auto) 2.3 TH/MM3 Monocytes # (Auto) 0.6 TH/MM3 Eosinophils # (Auto) 0.0 TH/MM3 Basophils # (Auto) 0.1 TH/MM3 CBC Comment DIFF FINAL Differential Comment Blood Urea Nitrogen 8 MG/DL Creatinine 0.89 MG/DL Random Glucose 159 MG/DL Total Protein 6.8 GM/DL Albumin 3.4 GM/DL Calcium Level 8.4 MG/DL Alkaline Phosphatase 79 U/L Aspartate Amino Transf (AST/SGOT) 27 U/L Alanine Aminotransferase (ALT/SGPT) 53 U/L Total Bilirubin 1.5 MG/DL Sodium Level 137 MEQ/L Potassium Level 3.5 MEQ/L Chloride Level 99 MEQ/L Carbon Dioxide Level 29.2 MEQ/L Anion Gap 9 MEQ/L Estimat Glomerular Filtration Rate 90 ML/MIN Objective Remarks GENERAL: Well developed, Obese patient. SKIN: No rashes, ecchymoses or lesions. Cool and dry. Few tattoos. NECK: Trachea midline. No JVD or lymphadenopathy. Supple, nontender, no meningeal signs. CARDIOVASCULAR: Regular rate and rhythm without murmurs, gallops, or rubs. RESPIRATORY: Clear to auscultation. Breath sounds equal bilaterally. No wheezes , rales, or rhonchi. GASTROINTESTINAL: Bowel sounds present. clean surgical wounds. MUSCULOSKELETAL: Extremities without clubbing, cyanosis, or edema. NEUROLOGICAL: Awake and alert. no focal deficits. Medications and IVs Current Medications Medications (Trade) Dose Ordered Sig/Zhen Route Start Time Stop Time Status Last Admin (NS Flush) 2 ml BID IV FLUSH 01/06/18 21:00 01/07/18 21:33 (NS Flush) 2 ml UNSCH PRN IV FLUSH 01/06/18 18:30 01/08/18 05:40 Piperacillin Sod/ Tazobactam Sod 100 ml @ 200 mls/hr Q6H IV 01/06/18 23:00 01/08/18 04:27 (Tylenol) 650 mg Q4H PRN PO 01/06/18 18:30 01/07/18 21:31 (Zofran Inj) 4 mg Q6H PRN IVP 01/06/18 18:30 (D50w (Vial) Inj) 50 ml UNSCH PRN IV PUSH 01/06/18 18:30 (Glucagon Inj) 1 mg UNSCH PRN OTHER 01/06/18 18:30 (NovoLOG SUPPLEMENTAL SCALE) 1 ACHS SLIDING SCALE SQ 01/06/18 21:00 01/07/18 21:44 (Lipitor) 40 mg HS PO 01/06/18 21:00 01/07/18 21:32 (Wellbutrin Xl 24 Hr) 300 mg DAILY PO 01/07/18 09:00 01/07/18 12:44 (Prinivil) 5 mg DAILY PO 01/07/18 09:00 01/07/18 09:03 (Flomax) 0.4 mg HS PO 01/06/18 21:00 01/07/18 21:32 (Spiriva Inh) 18 mcg DAILY INH 01/07/18 09:00 (Pepcid) 20 mg BID PO 01/07/18 09:00 01/07/18 21:32 (Duoneb Neb) 1 ampule Q6HR NEB PRN NEB 01/06/18 18:45 (Catapres) 0.1 mg Q6H PRN PO 01/06/18 18:45 Miscellaneous Information HOLD METFORMIN FOR... Q24H .XX 01/06/18 16:40 01/08/18 16:39 (Riviera 5-325 Mg) 1 tab Q4H PRN PO 01/07/18 10:30 01/07/18 21:30 (Riviera 5-325 Mg) 2 tab Q4H PRN PO 01/07/18 10:30 A/P Assessment and Plan (1) Appendicitis, acute ICD Code: K35.80 - Unspecified acute appendicitis Status: Acute (2) Diabetes mellitus ICD Code: E11.9 - Type 2 diabetes mellitus without complications Status: Chronic (3) Hypertension ICD Code: I10 - Essential (primary) hypertension Status: Chronic (4) COPD (chronic obstructive pulmonary disease) ICD Code: J44.9 - Chronic obstructive pulmonary disease, unspecified Status: Chronic (5) BPH (benign prostatic hyperplasia) ICD Code: N40.0 - Benign prostatic hyperplasia without lower urinary tract symptoms Status: Chronic (6) Dyslipidemia ICD Code: E78.5 - Hyperlipidemia, unspecified Status: Chronic (7) GERD (gastroesophageal reflux disease) ICD Code: K21.9 - Gastroesophageal reflux disease Status: Chronic 1. Acute appendicitis - CT scan showing evidence of early appendicitis - distal appendix distended with fat stranding - Status post laparoscopic appendectomy 01/06/18 as per General Surgery okay to discharge 2. DM II, continue Sliding scale, Hemoglobin A1C 12.5 Poorly controlled, given recommendations will need to follow with his PCP and close monitoring, the patient is non compliant with Diet and Exercise. 3. HTN controlled. - Continue home Lisinopril - Clonidine PRN 4. COPD non exacerbated, continue bronchodilator, Mucolytic and incentive spirometry. non exacerbated. 5. BPH - Continue home Flomax 6. Obesity strongly recommended diet and exercise. DVT prophylaxis SCDs Code Status FULL Discussed Condition With Patient Discharge Planning Cleared by General Surgery for discharge. Shaheen Gutierrez MD Jan 08, 2018 08:20
[2018-01-08] MEDS: ACETAMINOPHEN/HYDROcodone 325 MG/5 MG TAB PO PRN ×2 (08:21→17:16)
--- NOTE | 2018-01-08 10:38 | HHI.DS ---
Discharge Summary Admission Date Jan 06, 2018 at 17:43 Discharge Date: Jan 08, 2018 Admitting Diagnosis Acute Appendicitis (1) Appendicitis, acute ICD Code: K35.80 - Unspecified acute appendicitis Diagnosis: Principal Status: Acute (2) Diabetes mellitus ICD Code: E11.9 - Type 2 diabetes mellitus without complications Diagnosis: Principal Status: Chronic (3) Hypertension ICD Code: I10 - Essential (primary) hypertension Diagnosis: Secondary Status: Chronic (4) COPD (chronic obstructive pulmonary disease) ICD Code: J44.9 - Chronic obstructive pulmonary disease, unspecified Diagnosis: Secondary Status: Chronic (5) BPH (benign prostatic hyperplasia) ICD Code: N40.0 - Benign prostatic hyperplasia without lower urinary tract symptoms Diagnosis: Secondary Status: Chronic (6) Dyslipidemia ICD Code: E78.5 - Hyperlipidemia, unspecified Diagnosis: Secondary Status: Chronic (7) GERD (gastroesophageal reflux disease) ICD Code: K21.9 - Gastroesophageal reflux disease Status: Chronic Procedures Laparoscopic Appendectomy 01/06/18 Brief History - From Admission 52 YOWM presented to the ER for lower abdominal pain. He states the pain has been intermittent for the past 2-3 months but yesterday evening it intensified. He states he had dinner and was watching TV when he had acute onset lower abdominal pain. He endorses associated nausea and belching but denies vomiting, diarrhea, fever, or chills. He states the pain was sharp and pulsating and he rates it as a "20." Pain radiated to the epigastric region and back. He didn't take anything for the pain and was able to get to sleep but only on his side. When he woke this morning the pain was significantly better but still present so he decided to come in for evaluation. His pain so far today has been coming in waves. CBC/BMP: 01/07/18 0530 01/07/18 0530 Significant Findings Laboratory Tests Test 01/06/18 14:15 01/06/18 15:25 01/06/18 15:45 01/07/18 01:10 Random Glucose 390 MG/DL (74-106) Total Protein 8.3 GM/DL (6.4-8.2) Aspartate Amino Transf (AST/SGOT) 38 U/L (15-37) Sodium Level 133 MEQ/L (136-145) Estimat Glomerular Filtration Rate 78 ML/MIN (>89) Hemoglobin A1c 12.5 % (4.3-6.0) Lactic Acid Level 2.7 mmol/L (0.4-2.0) 2.2 mmol/L (0.4-2.0) Urine Glucose (UA) 1000 mg/dL (NEG) Test 01/07/18 05:30 White Blood Count 12.3 TH/MM3 (4.0-11.0) Neutrophils (%) (Auto) 75.3 % (16.0-70.0) Neutrophils # (Auto) 9.3 TH/MM3 (1.8-7.7) Random Glucose 159 MG/DL (74-106) Calcium Level 8.4 MG/DL (8.5-10.1) Total Bilirubin 1.5 MG/DL (0.2-1.0) Imaging Last Impressions Abdomen/Pelvis CT 01/06/18 7095 Signed Impressions: Service Date/Time: Saturday, January 06, 2018 16:38 - CONCLUSION: The distal appendix is distended to 11 mm and there is very minimal periappendiceal fat stranding. Findings are most characteristic of a very early or very mild appendicitis. No abscess obstruction free fluid or free air. Rancho Hairston MD PE at Discharge GENERAL: Well developed, Obese patient. SKIN: No rashes, ecchymoses or lesions. Cool and dry. Few tattoos. NECK: Trachea midline. No JVD or lymphadenopathy. Supple, nontender, no meningeal signs. CARDIOVASCULAR: Regular rate and rhythm without murmurs, gallops, or rubs. RESPIRATORY: Clear to auscultation. Breath sounds equal bilaterally. No wheezes , rales, or rhonchi. GASTROINTESTINAL: Bowel sounds present. clean surgical wounds. MUSCULOSKELETAL: Extremities without clubbing, cyanosis, or edema. NEUROLOGICAL: Awake and alert. no focal deficits. Hospital Course This is a pleasant 52 y/o Male who came to ER with lower abdominal pain, with diagnosis of appendicitis status post appendectomy, he has DM II, Hypertension, Hyperlipidemia, COPD, Chronic pain syndrome Tobacco dependence, GERD. stable in his bedroom discussed with nurse Miss Cuevas, advanced diet awaiting final by General import specialist for discharge. 01/08: Seen in his bedroom, no nausea, vomit or diarrhea, already recommended for discharge by General Surgery. Assessment and Plan: 1. Acute appendicitis - CT scan showing evidence of early appendicitis - distal appendix distended with fat stranding - Status post laparoscopic appendectomy 01/06/18 as per General Surgery okay to discharge 2. DM II, continue Sliding scale, Hemoglobin A1C 12.5 Poorly controlled, given recommendations will need to follow with his PCP and close monitoring, the patient is non compliant with Diet and Exercise. 3. HTN controlled. - Continue home Lisinopril - Clonidine PRN 4. COPD non exacerbated, continue bronchodilator, Mucolytic and incentive spirometry. non exacerbated. 5. BPH - Continue home Flomax 6. Obesity strongly recommended diet and exercise. DVT prophylaxis SCDs Code Status FULL Discussed Condition With Patient Discharge Planning Cleared by General Surgery for discharge. Pt Condition on Discharge: Good Discharge Disposition: Discharge Home Discharge Time: <= 30 minutes Discharge Instructions DIET: Follow Instructions for: Heart Healthy Diet, Diabetic Diet Activities you can perform: Regular-No Restrictions Shaheen Gutierrez MD Jan 08, 2018 10:38
--- NOTE | 2018-01-08 12:13 | HHI.PR ---
Subjective Subjective Notes No issues overnight Tolerated diet Objective Vitals/I&O Vital Signs Date Time Temp Pulse Resp B/P (MAP) Pulse Ox O2 Delivery O2 Flow Rate FiO2 01/08/18 08:00 97.6 94 16 142/94 (110) 96 01/07/18 21:30 21 01/06/18 22:00 Nasal Cannula 3 Labs Date/Time Source Procedure Growth Status 01/06/18 15:25 Blood Peripheral Aerobic Blood Culture - Preliminary NO GROWTH IN 2 DAYS Resulted 01/06/18 15:25 Blood Peripheral Anaerobic Blood Culture - Preliminary NO GROWTH IN 2 DAYS Resulted Cardiovascular: Regular Lungs: Clear Abdomen: Other (lap sites c/d/i ) Extremities: No edema A/P Assessment and Plan 52 year old male POD2 lap appy; multiple chronic medical conditions -1800 ADA diet -GS clear for DC -Rx on chart -Follow up with Dr. Vincent January 14 Attending Statement patient seen at bedside ada diet ok for d/c doing well Attestation The exam, history, and the medical decision-making described in the above note were completed with the assistance of the mid-level provider. I reviewed and agree with the findings presented. I attest that I had a [id number] encounter with the patient on the same day, and personally performed and documented my assessment and findings in the medical record. Esther Flynn/First Arelis ROSS Jan 08, 2018 12:13 Kishore Vincent MD Jan 11, 2018 21:28
[2018-01-08 17:32] LABS: CREATININE 0.9 MG/DL (0.60-1.30)
== END 2018-01-08 17:26 | disposition home or self-care (01) | DRG 343 ==
LOC: NEPD 12:09 → NEDA 17:43 → HCIN 22:07
PROVIDERS: ADMIT Internal Medicine; ATTEND Internal Medicine
PROC: 0DTJ4ZZ Resection of Appendix, Percutaneous Endoscopic Approach (ICD-10-PCS; principal; 2018-01-06 19:52)
DX: K35.80 Unspecified acute appendicitis (principal); E11.65 Type 2 diabetes mellitus with hyperglycemia; I10 Essential (primary) hypertension; E78.5 Hyperlipidemia, unspecified; J44.9 Chronic obstructive pulmonary disease, unspecified; G89.4 Chronic pain syndrome; K21.9 Gastro-esophageal reflux disease without esophagitis; I25.10 Atherosclerotic heart disease of native coronary artery without angina pectoris; N40.0 Benign prostatic hyperplasia without lower urinary tract symptoms; E66.9 Obesity, unspecified; Z68.39 Body mass index [BMI] 39.0-39.9, adult; Z87.891 Personal history of nicotine dependence; Z91.11 Patient's noncompliance with dietary regimen; Z79.84 Long term (current) use of oral hypoglycemic drugs
CPT/HCPCS: 74177; 80053; 81001; 82565; 82948; 83036; 83605; 83690; 85025; 85610; 85730; 87040; 88304; 93005; 96361; 96372; 96374; 96375; J0330; J0500; J1815; J2250; J2270; J2370; J2405; J2543; J2710; J3010; J7030; Q9967

== ENCOUNTER 2018-01-24 14:29 | Emergency (ER) | payer MEDICAID ==
[~2018-01-24] VITALS: Ht 170.2 cm; Wt 100.0 kg
[~2018-01-24 14:29] MED LIST changes: -GLYCOPYRROLATE 1 MG/5 ML SYRINGE IV PUSH ONE; +HYDR-3516 PO; -LIDOCAINE HCL 1% PF 5 ML SYRINGE OTHER ONE; -NEOSTIGMINE 5 MG/5 ML SYRINGE IV PUSH ONE; -ONDANSETRON HCL 4 MG/2 ML VIAL IV ONE; -PHENYLEPH/NS 1000 MCG/10 ML SYR IV ONE; -PROPOFOL 200 MG/20 ML AMP IV ONE; -ROCURONIUM INJ 50 MG/5 ML SYRINGE IV PUSH ONE; -SUCCINYLCHOLINE CHLORIDE 100 MG/5 ML SYRINGE IV PUSH ONE
[2018-01-24 14:42] VITALS: BP 131/79; PULSE 99; RESP 17; TEMP 97.4; O2SAT 97
[2018-01-24 18:43] VITALS: BP 137/82
[2018-01-24] MEDS ORDERED: SODIUM CHLORIDE 0.9% FLUSH 10 ML FLUSH IV FLUSH PRN (18:45)
[2018-01-24] MEDS ORDERED: MORPHINE SULFATE 4 MG/ML INJ IV PUSH ONE (18:45)
[2018-01-24] MEDS ORDERED: ONDANSETRON HCL 4 MG/2 ML VIAL IVP ONE (18:45)
[2018-01-24] MEDS ORDERED: SODIUM CHLOR 0.9% 1000 ML INJ 1,000 ML IV SCH (18:45)
--- NOTE | 2018-01-24 18:57 | PD ---
HPI Chief Complaint: Flank/Kidney Pain Time Seen by Provider: 18:45 Travel History International Travel<30 days: No Contact w/Intl Traveler<30days: No Traveled to known affect area: No History of Present Illness HPI 52-year-old male presents emergency department with 2 day history of right upper quadrant tenderness and flank pain. Patient denies recent injury. Patient is status post laparoscopic appendectomy on 01/06/2018. Patient denies fever, chills, or diarrhea. Denies urinary symptoms. Patient describes occasional radiating chest pain to the central chest and abdomen. He is vague in his description. He states it is worse with twisting his torso. Pain is rated as a 6 out of 10, worse with movement. He denies specific shortness of breath or cough. Patient is allergic to ascorbic acid, aspirin, and bee venom. PFSH Past Medical History Arthritis: Yes Cancer: No Cardiac Catheterization: No Cardiovascular Problems: Yes (HTN) High Cholesterol: Yes Chest Pain: Yes COPD: Yes Coronary Artery Disease: Yes Diabetes: Yes Patient Takes Glucophage: Yes Diminished Hearing: No Genitourinary: Yes (Difficulty initiating stream, takes Flomax.) Hypertension: Yes Immune Disorder: No Neurologic: No Psychiatric: No Ulcer: Yes Past Surgical History AICD: No Appendectomy: Yes Arteriovenous Shunt: No Eye Surgery: Yes Insulin Pump: No Joint Replacement: No Pacemaker: No Social History Alcohol Use: No Tobacco Use: No Substance Use: No Allergies-Medications (Allergen,Severity, Reaction): Coded Allergies: bee venom protein (honey bee) (Verified Allergy, Severe, 01/24/18) anaphylaxis ascorbic acid (Verified Allergy, Intermediate, rash, 01/24/18) aspirin (Verified Allergy, Mild, 01/24/18) Reported Meds & Prescriptions Reported Meds & Active Scripts Active Hydrocodone-Acetamin 5-325 mg (Hydrocodone/Acetaminophen) 5 Mg-325 Mg Tablet 1 Tab PO Q4H PRN Zantac (Ranitidine HCl) 150 Mg Tab 150 Mg PO DAILY Wellbutrin Xl 24 HR (Bupropion HCl) 300 Mg Tab 300 Mg PO DAILY Spiriva Handihaler (Tiotropium Inh) 18 Mcg Cap 18 Mcg INH DAILY 1 capsule = 18 mcg Lipitor (Atorvastatin Calcium) 40 Mg Tab 40 Mg PO HS Glipizide XL (Glipizide) 2.5 Mg Lucina 2.5 Mg PO DAILY Take with breakfast or first main meal of the day Tamsulosin (Tamsulosin HCl) 0.4 Mg Cap 0.4 Mg PO HS Lisinopril 5 Mg Tab 5 Mg PO DAILY Metformin (Metformin HCl) 500 Mg Tab 1,000 Mg PO BIDPC With meals Proventil Hfa 6.7 GM Inh (Albuterol Sulfate) 90 Mcg/Act Aer 2 Puff INH Q4-6H PRN Blood Glucose Test Strips 1 Haydee Haydee 1 Ea .ROUTE DIRECTED Glucocom Blood Glucose Mo W/Device (Device) 1 Kit Kit 1 Kit .ROUTE DAILY Epipen 2-Florentin Inj (Epinephrine) 0.3 Mg/0.3 Ml Pfpen 0.3 Mg IM ONCE PRN Review of Systems Except as stated in HPI: all other systems reviewed are Neg General / Constitutional: No: Fever, Chills Eyes: No: Visual changes HENT: No: Headaches Cardiovascular: Positive: Chest Pain or Discomfort (See history of present illness per), No: Palpitations, Irregular Rhythm, Tachycardia, Diaphoresis, Syncope, Dyspnea on exertion, Edema Respiratory: No: Cough, Shortness of Breath Gastrointestinal: No: Nausea, Vomiting, Diarrhea, Abdominal Pain Genitourinary: Positive: Flank Pain, No: Urgency, Frequency, Dysuria Musculoskeletal: Positive: Myalgias, Pain (See history of present illness per) , No: Arthralgias, Limited ROM Skin: No Rash Neurologic: No: Weakness Psychiatric: No: Depression Endocrine: No: Polydipsia Hematologic/Lymphatic: No: Easy Bruising Physical Exam Narrative GENERAL: Patient appears in no obvious distress per SKIN: Warm and dry. Normal color. Normal turgor. No rash. Laparoscopic incisions are well-healed HEAD: Atraumatic. Normocephalic. EYES: Pupils equal and round. No scleral icterus. No injection or drainage. ENT: No nasal bleeding or discharge. Mucous membranes pink and moist. Pharynx is clear. Airways patent NECK: Trachea midline. Supple and nontender. CARDIOVASCULAR: Regular rate and rhythm. RESPIRATORY: No accessory muscle use. Clear to auscultation. Breath sounds equal bilaterally. GASTROINTESTINAL: Abdomen soft, nonspecific right upper quadrant tenderness, nondistended. No specific CVA tenderness with percussion. Hepatic and splenic margins not palpable. MUSCULOSKELETAL: Extremities without clubbing, cyanosis, or edema. No obvious deformities. NEUROLOGICAL: Awake and alert. No obvious cranial nerve deficits. Motor grossly within normal limits. Five out of 5 muscle strength in the arms and legs. Normal speech. PSYCHIATRIC: Appropriate mood and affect; insight and judgment normal. Data Data Last Documented VS Vital Signs Date Time Temp Pulse Resp B/P (MAP) Pulse Ox O2 Delivery O2 Flow Rate FiO2 01/24/18 18:43 137/82 (100) 01/24/18 14:42 97.4 99 17 97 Orders Orders Complete Blood Count With Diff (01/24/18 18:45) Comprehensive Metabolic Panel (01/24/18 18:45) Lipase (01/24/18 18:45) Lactic Acid (01/24/18 18:45) Prothrombin Time / Inr (Pt) (01/24/18 18:45) Act Partial Throm Time (Ptt) (01/24/18 18:45) Urinalysis - C+S If Indicated (01/24/18 18:45) Ct Abd/Pel W Iv Contrast(Rout) (01/24/18 18:45) Iv Access Insert/Monitor (01/24/18 18:45) Ecg Monitoring (01/24/18 18:45) Oximetry (01/24/18 18:45) NPO (01/24/18 18:45) Morphine Inj (Morphine Inj) (01/24/18 18:45) Ondansetron Inj (Zofran Inj) (01/24/18 18:45) Sodium Chlor 0.9% 1000 Ml Inj (Ns 1000 M (01/24/18 18:45) Sodium Chloride 0.9% Flush (Ns Flush) (01/24/18 18:45) Electrocardiogram (01/24/18 18:45) Chest, Single Ap (01/24/18 18:45) MDM Medical Decision Making Medical Screen Exam Complete: Yes Emergency Medical Condition: Yes Medical Record Reviewed: Yes Differential Diagnosis Muscle wall pain. Kidney stone. Gallbladder disease. Renal colic. Pneumonia. Postop appendicitis. Narrative Course Patient is medically stable at time of exam. Labs are ordered including CBC, CMP, lipase, lactic acid, urinalysis. Chest x-ray is ordered. CT the abdomen/pelvis is ordered with IV contrast. IV access is obtained the patient is given 2 mg morphine IV, 4 mg Zofran IV, 1000 mL of normal saline bolus is ordered. 1900 hrs., CARE the patient is turned over to Stevie Collins PA-C. Final disposition will be determined by him. Condition: Stable Ketan Lopez Jan 24, 2018 18:57
--- NOTE | 2018-01-24 19:14 | PD ---
Data Data Last Documented VS Vital Signs Date Time Temp Pulse Resp B/P (MAP) Pulse Ox O2 Delivery O2 Flow Rate FiO2 01/24/18 19:52 92 18 118/66 (83) 98 Room Air 01/24/18 14:42 97.4 Orders Orders Complete Blood Count With Diff (01/24/18 18:45) Comprehensive Metabolic Panel (01/24/18 18:45) Lipase (01/24/18 18:45) Lactic Acid (01/24/18 18:45) Prothrombin Time / Inr (Pt) (01/24/18 18:45) Act Partial Throm Time (Ptt) (01/24/18 18:45) Urinalysis - C+S If Indicated (01/24/18 18:45) Ct Abd/Pel W Iv Contrast(Rout) (01/24/18 18:45) Iv Access Insert/Monitor (01/24/18 18:45) Ecg Monitoring (01/24/18 18:45) Oximetry (01/24/18 18:45) NPO (01/24/18 18:45) Morphine Inj (Morphine Inj) (01/24/18 18:45) Ondansetron Inj (Zofran Inj) (01/24/18 18:45) Sodium Chlor 0.9% 1000 Ml Inj (Ns 1000 M (01/24/18 18:45) Sodium Chloride 0.9% Flush (Ns Flush) (01/24/18 18:45) Electrocardiogram (01/24/18 18:45) Chest, Single Ap (01/24/18 18:45) Iohexol 350 Inj (Omnipaque 350 Inj) (01/24/18 19:33) Ed Discharge Order (01/24/18 20:58) Labs Laboratory Tests Test 01/24/18 18:50 01/24/18 19:06 White Blood Count 11.1 TH/MM3 Red Blood Count 5.06 MIL/MM3 Hemoglobin 14.6 GM/DL Hematocrit 43.5 % Mean Corpuscular Volume 86.0 FL Mean Corpuscular Hemoglobin 28.8 PG Mean Corpuscular Hemoglobin Concent 33.5 % Red Cell Distribution Width 14.4 % Platelet Count 270 TH/MM3 Mean Platelet Volume 9.3 FL Neutrophils (%) (Auto) 56.0 % Lymphocytes (%) (Auto) 37.6 % Monocytes (%) (Auto) 4.4 % Eosinophils (%) (Auto) 1.3 % Basophils (%) (Auto) 0.7 % Neutrophils # (Auto) 6.2 TH/MM3 Lymphocytes # (Auto) 4.2 TH/MM3 Monocytes # (Auto) 0.5 TH/MM3 Eosinophils # (Auto) 0.1 TH/MM3 Basophils # (Auto) 0.1 TH/MM3 CBC Comment DIFF FINAL Differential Comment Prothrombin Time 10.8 SEC Prothromb Time International Ratio 1.1 RATIO Activated Partial Thromboplast Time 22.6 SEC Blood Urea Nitrogen 9 MG/DL Creatinine 0.85 MG/DL Random Glucose 86 MG/DL Total Protein 8.1 GM/DL Albumin 4.3 GM/DL Calcium Level 9.6 MG/DL Alkaline Phosphatase 86 U/L Aspartate Amino Transf (AST/SGOT) 36 U/L Alanine Aminotransferase (ALT/SGPT) 60 U/L Total Bilirubin 1.1 MG/DL Sodium Level 137 MEQ/L Potassium Level 3.9 MEQ/L Chloride Level 101 MEQ/L Carbon Dioxide Level 24.0 MEQ/L Anion Gap 12 MEQ/L Estimat Glomerular Filtration Rate 95 ML/MIN Lipase 84 U/L Urine Color YELLOW Urine Turbidity CLEAR Urine pH 6.0 Urine Specific [place] 1.008 Urine Protein NEG mg/dL Urine Glucose (UA) NEG mg/dL Urine Ketones NEG mg/dL Urine Occult Blood NEG Urine Nitrite NEG Urine Bilirubin NEG Urine Urobilinogen LESS THAN 2.0 MG/DL Urine Leukocyte Esterase NEG Urine WBC 2 /hpf Urine Squamous Epithelial Cells <1 /hpf Microscopic Urinalysis Comment CULT NOT INDICATED Lactic Acid Level 1.8 mmol/L [facility] Medical Record Reviewed: Yes Supervised Visit with RUBIA: No Narrative Course Please see previous providers notes. I assumed care pending lab work and imaging studies. Briefly this is a patient who underwent laparoscopic appendectomy on January 06. He for the past few days she has been having pain in his right lower back and right lower abdomen which is reproduced with rotation at the torso. He has no pain with rest, no pain currently. On examination he has mild tenderness to palpation in the right lower quadrant without guarding. There is no erythema or induration of the skin. CT abdomen pelvis reveals CONCLUSION: 1. Induration of the fat in the right lower quadrant around post surgical change. No focal fluid collection is seen. 2. Induration the subcutaneous fat in the left lower quadrant anterior bowel wall likely from prior arthroscopic surgery. 3. Hepatic steatosis. I discussed with the radiologist and this is really not unexpected after a laparoscopic surgery. His lab work is reassuringly unremarkable. His pain certainly seems musculoskeletal as it is reproduced with movement. There is nothing by history or examination to suggest infectious process. At this point in time the plan will be to have him follow-up closely with Dr. Vincent return for any acutely new or worsening symptoms such as intractable pain, fevers, intractable nausea and vomiting. He is agreeable. Diagnosis Primary Impression: Postoperative abdominal pain Referrals: Kishore Vincent MD Additional Instruction: As discussed, follow-up with Dr. Vincent the next few days. Take Tylenol or Motrin for pain as needed per Dosing instructions on the bottle. Return for any acutely new or worsening symptoms such as fevers, intractable abdominal pain , nausea and vomiting. Med/Other Pt SpecificInfo: No Change to Meds Disposition: 01 DISCHARGE HOME Condition: Stable Stevie Collins Jan 24, 2018 19:14
[2018-01-24] MEDS ORDERED: IOHEXOL 350 MG/ML 10 ML VIAL (for RAD DIAG) IVCONTRAST ONE (19:33)
[2018-01-24 19:38] LABS: AUTOMATED NEUTROPHIL # 6.2 TH/MM3 (1.8-7.7); BASOPHIL # 0.1 TH/MM3 (0-0.2); BASOPHIL % 0.7 % (0.0-2.0); EOSINOPHIL # 0.1 TH/MM3 (0-0.4); EOSINOPHIL % 1.3 % (0.0-4.0); HEMATOCRIT 43.5 % (39.0-51.0); HEMOGLOBIN 14.6 GM/DL (13.0-17.0); LYMPH % 37.6 % (9.0-44.0); LYMPHOCYTE # 4.2 TH/MM3 (1.0-4.8); MEAN CORPUSCULAR HEMOGLOBIN 28.8 PG (27.0-34.0); MEAN CORPUSCULAR HGB CONC 33.5 % (32.0-36.0); MEAN PLATELET VOLUME 9.3 FL (7.0-11.0); MONO % 4.4 % (0.0-8.0); MONOCYTE # 0.5 TH/MM3 (0-0.9); PLATELET COUNT 270 TH/MM3 (150-450); RED BLOOD COUNT 5.06 MIL/MM3 (4.50-5.90); RED CELL DISTRIBUTION WIDTH 14.4 % (11.6-17.2); WHITE BLOOD COUNT 11.1 TH/MM3 (4.0-11.0)
[2018-01-24 19:49] LABS: BILIRUBIN, URINE NEG (NEG); BLOOD, URINE NEG (NEG); GLUCOSE,URINE NEG (NEG); KETONE, URINE NEG (NEG); NITRITE,URINE NEG (NEG); SQUAMOUS EPITHELIAL CELL URINE <1 /hpf (0-5); URINE COLOR YELLOW (YELLW/STRAW); URINE LEUKOCYTE ESTERASE NEG (NEG)
--- NOTE | 2018-01-24 19:49 | RADRPT ---
EXAM DATE/TIME: 01/24/2018 19:00 [facility] COMPARISON: No previous studies available for comparison. INDICATIONS : Right lateral lower chest pain MEDICAL HISTORY : Cardiovascular disease. Hypertension. Gastroesophageal reflux disease.Diabetes SURGICAL HISTORY : Appendectomy. ENCOUNTER: Initial ACUITY: 2 months PAIN SCORE: 4/10 LOCATION: Right chest FINDINGS: A single view of the chest demonstrates the lungs to be symmetrically aerated without evidence of mas s, infiltrate or effusion. The cardiomediastinal contours are unremarkable. Osseous structures are intact. CONCLUSION: No acute disease. Servando Huynh MD on January 24, 2018 at 19:46 Board Certified Radiologist. This report was verified electronically.
[2018-01-24 19:50] LABS: INTERNATIONAL NORMALIZED RATIO 1.1 RATIO; PROTHROMBIN TIME - PATIENT 10.8 SEC (9.8-11.6)
[2018-01-24 19:52] VITALS: BP 118/66; PULSE 92; RESP 18; O2SAT 98
[2018-01-24 19:54] LABS: ALBUMIN 4.3 GM/DL (3.4-5.0); AST (GOT) 36 U/L (15-37); BLOOD UREA NITROGEN 9 MG/DL (7-18); CALCIUM 9.6 MG/DL (8.5-10.1); CHLORIDE 101 MEQ/L (98-107); CREATININE 0.85 MG/DL (0.60-1.30); GLOMERULAR FILTRATION RATE 95 ML/MIN (>89); GLUCOSE,RANDOM 86 MG/DL (74-106); SODIUM (NA) 137 MEQ/L (136-145)
[2018-01-24 19:55] LABS: ALT (GPT) 60 U/L (12-78)
[2018-01-24 19:57] LABS: ALKALINE PHOSPHATASE 86 U/L (45-117); TOTAL BILIRUBIN ADULT 1.1 MG/DL (0.2-1.0); TOTAL PROTEIN 8.1 GM/DL (6.4-8.2)
--- NOTE | 2018-01-24 20:43 | RADRPT ---
EXAM DATE/TIME: 01/24/2018 19:30 [facility] COMPARISON: CT ABDOMEN & PELVIS W CONTRAST, January 06, 2018, 16:38. INDICATIONS : Right side abdomen pain post recent appendectomy. IV CONTRAST: 100 cc Omnipaque 350 (iohexol) IV ORAL CONTRAST: No oral contrast ingested. RADIATION DOSE: 14.86 CTDIvol (mGy) MEDICAL HISTORY : Cardiovascular disease. Hypertension. Chronic obstructive pulmonary disease.Ulcers. SURGICAL HISTORY : Appendectomy. ENCOUNTER: Initial ACUITY: 2 days PAIN SCALE: 5/10 LOCATION: Right abdomen. TECHNIQUE: Volumetric scanning of the abdomen and pelvis was performed. Using automated exposure control and ad justment of the mA and/or kV according to patient size, radiation dose was kept as low as reasonably achievable to obtain optimal diagnostic quality images. DICOM format image data is available electro nically for review and comparison. FINDINGS: LOWER LUNGS: The visualized lower lungs are clear. LIVER: There is diffuse decreased attenuation of the liver. No focal hepatic lesions are seen. SPLEEN: Normal size without lesion. PANCREAS: Within normal limits. KIDNEYS: Normal in size and shape. There is no mass, stone or hydronephrosis. ADRENAL GLANDS: Within normal limits. VASCULAR: There is no aortic aneurysm. BOWEL/MESENTERY: The stomach, small bowel, and colon demonstrate no acute abnormality. There is no free intraperitone al air or fluid. There are bowel sutures at the tip of the cecum and extending into the right lower q uadrant from prior appendectomy. There some induration in the right lower quadrant around the suture line. ABDOMINAL WALL: No hernia seen. There is induration seen in the left lower quadrant subcutaneous fat. This could be f rom prior postsurgical change if the patient had laparoscopic surgery. RETROPERITONEUM: There is no lymphadenopathy. BLADDER: No wall thickening or mass. REPRODUCTIVE: Within normal limits. Prostatic calcifications are seen. INGUINAL: There is no lymphadenopathy or hernia. MUSCULOSKELETAL: Within normal limits for patient age. CONCLUSION: 1. Induration of the fat in the right lower quadrant around post surgical change. No focal fluid dereck ection is seen. 2. Induration the subcutaneous fat in the left lower quadrant anterior bowel wall likely from prior a rthroscopic surgery. 3. Hepatic steatosis. Servando Huynh MD on January 24, 2018 at 20:35 Board Certified Radiologist. This report was verified electronically.
[2018-01-24 23:07] VITALS: BP 127/77; PULSE 88; RESP 18; O2SAT 100
--- NOTE | 2018-01-25 10:31 | EKG ---
Date Performed: 01/24/2018 Time Performed: 19:56:32 PTAGE: 52 years EKG: Sinus rhythm Right bundle branch block ABNORMAL ECG PREVIOUS TRACING : 01/06/2018 19.43 Since the previous tracing, no significant change noted DOCTOR: Walt Marcelino Interpretating Date/Time 01/25/2018 10:30:29
== END 2018-01-24 23:08 | disposition home or self-care (01) ==
LOC: NED 14:29 → NEPD 14:29 → NED 16:06 → NEPD 23:08
DX: G89.18 Other acute postprocedural pain (principal); R10.9 Unspecified abdominal pain; R94.31 Abnormal electrocardiogram [ECG] [EKG]; M19.90 Unspecified osteoarthritis, unspecified site; E11.9 Type 2 diabetes mellitus without complications; E78.00 Pure hypercholesterolemia, unspecified; I10 Essential (primary) hypertension; I25.10 Atherosclerotic heart disease of native coronary artery without angina pectoris; J44.9 Chronic obstructive pulmonary disease, unspecified
CPT/HCPCS: 71045; 74177; 80053; 81001; 83605; 83690; 85025; 85610; 85730; 93005; 96361; 96374; 96375; 99285; J2270; J2405; J7030; Q9967